=== PATIENT | female | born 1955 | race Caucasian/White ===

== ENCOUNTER → 2016-11-23 | Outpatient (CLI) | payer BC, MEDICAID ==
[2016-11-23 13:45] VITALS: BP 149/73; PULSE 69; RESP 16; TEMP 98.1; BMI 27.4
--- NOTE | 2016-11-23 14:02 | P.HPBAR ---
Bariatric H&P - History & Physicial H&P Date: 11/23/16 History & Physicial: Visit/CC: band adj Patient initial contact: Initial weight: 65.913 kg Initial weight in pounds: 145.00 Height: 5 ft 1 in Initial BMI: 27.4 Last weight: Current weight: 65.913 kg Current weight in pounds: 145.00 Current BMI: 27.4 [place] body weight (based on NIH guidelines): 47.627 kg Excess body weight loss: 0.0% The patient is a 61 year-old F who presents for Bariatric Assessment. The patient presents today for adjustment of her LAP-BAND. She currently feels hungry. She is requesting a fill Review of Systems Constitutional: Reports as per HPI Past Medical History History of Any Multi-Drug Resistant Organisms: None Reported Additional Past Surgical History / Comment(s): neck surgery. Smoking Status: Never smoker Surgical - Exam Vital Signs Temp Pulse Resp BP 98.1 F 69 16 149/73 11/23/16 13:42 11/23/16 13:42 11/23/16 13:42 11/23/16 13:42 - General well developed, no distress - Eyes PERRL - ENT normal pinna - Neck no masses - Respiratory normal expansion - Cardiovascular Rhythm: regular - Abdomen Abdomen: soft, non tender Bariatric Assessment & Plan Plan: The patient is LAP-BAND was adjusted. She had 0.5 mL added to her LAP-BAND. She currently has 3.7 mL in the band. She'll follow-up in one month. Bariatric Checklist Checklist: Plan: Checklist: EGD: 1. Hiatal hernia: 2. H. Pylori: HgbA1c: Vitamin D: Smoking: Never smoker Primary care physician referral: Psychiatry clearance: Cardiology clearance: Sleep study: Diet journal: VTE risk score: VTE risk level: Rehab needs at discharge:
== END | disposition home or self-care (01) ==
LOC: BARWHC3 13:11
PROVIDERS: ATTEND Surgery
DX: Z48.815 Encounter for surgical aftercare following surgery on the digestive system (principal); Z68.27 Body mass index [BMI] 27.0-27.9, adult; Z98.84 Bariatric surgery status
CPT/HCPCS: 99212

== ENCOUNTER → 2016-12-07 | Outpatient (CLI) | payer MEDICAID ==
[2016-12-07 13:53] VITALS: BP 149/80; PULSE 83; RESP 14; TEMP 97.6; BMI 27.9
--- NOTE | 2016-12-07 16:36 | P.HPBAR ---
Bariatric H&P - History & Physicial H&P Date: 12/07/16 History & Physicial: Visit/CC: band fill Patient initial contact: Initial weight: 65.913 kg Initial weight in pounds: 145.31 Height: 5 ft 1 in Initial BMI: 27.4 Last weight: Current weight: 67.132 kg Current weight in pounds: 148.00 Current BMI: 27.9 [place] body weight (based on NIH guidelines): 47.627 kg Excess body weight loss: The patient is a 61 year-old F who presents for Bariatric Assessment. The patient was a safer lap band fill. She states she is hungry. Past Medical History Past Medical History: GERD/Reflux, Hyperlipidemia, Hypertension Additional Past Medical History / Comment(s): overactive bladder History of Any Multi-Drug Resistant Organisms: None Reported Past Surgical History: Bariatric Surgery, Orthopedic Surgery Additional Past Surgical History / Comment(s): neck surgery, lap band 2007, panniculectomy Past Anesthesia/Blood Transfusion Reactions: No Reported Reaction Additional Past Anesthesia/Blood Transfusion Reaction / Comm: one blood transfusion (autolygous) Past Psychological History: No Psychological Hx Reported Smoking Status: Never smoker Past Alcohol Use History: None Reported Past Drug Use History: None Reported - Past Family History Mother Family Medical History: Cancer, Coronary Artery Disease (CAD) Additional Family Medical History / Comment(s): spindle cell cancer, at age 72 Father Family Medical History: Coronary Artery Disease (CAD) Additional Family Medical History / Comment(s): at age 62 Surgical - Exam Vital Signs Temp Pulse Resp BP 97.6 F 83 14 149/80 12/07/16 13:43 12/07/16 13:43 12/07/16 13:43 12/07/16 13:43 - General well developed, no distress - Eyes PERRL - ENT normal pinna - Abdomen Abdomen: soft, non tender Bariatric Assessment & Plan Plan: Patient LAP-BAND was adjusted. She had 1 mL added to her LAP-BAND. She currently has 4.7 mL in her band. She'll follow-up in one month. She was able to water without difficulty. Bariatric Checklist Checklist: Plan: Checklist: EGD: 1. Hiatal hernia: 2. H. Pylori: HgbA1c: Vitamin D: Smoking: Never smoker Primary care physician referral: donal davenport ([place]) Psychiatry clearance: Cardiology clearance: Sleep study: Diet journal: VTE risk score: VTE risk level: Rehab needs at discharge:
== END | disposition home or self-care (01) ==
LOC: BARWHC3 13:03
PROVIDERS: ATTEND Surgery
DX: Z48.815 Encounter for surgical aftercare following surgery on the digestive system (principal); Z98.84 Bariatric surgery status; Z68.27 Body mass index [BMI] 27.0-27.9, adult
CPT/HCPCS: 99212

== ENCOUNTER → 2016-12-21 | Outpatient (CLI) | payer MEDICAID ==
--- NOTE | 2016-12-21 16:29 | P.HPBAR ---
Bariatric H&P - History & Physicial H&P Date: 12/21/16 History & Physicial: Visit/CC: Patient initial contact: Initial weight: 65.913 kg Initial weight in pounds: Height: Initial BMI: Last weight: Current weight: Current weight in pounds: Current BMI: [place] body weight (based on NIH guidelines): Excess body weight loss: The patient is a 61 year-old F who presents for Bariatric Assessment. The patient has complaints of hunger. She wants another fibrillar her LAP-BAND. She states she feels no obstruction. Past Medical History Past Medical History: GERD/Reflux, Hyperlipidemia, Hypertension Additional Past Medical History / Comment(s): overactive bladder History of Any Multi-Drug Resistant Organisms: None Reported Past Surgical History: Bariatric Surgery, Orthopedic Surgery Additional Past Surgical History / Comment(s): neck surgery, lap band 2008, panniculectomy Past Anesthesia/Blood Transfusion Reactions: No Reported Reaction Additional Past Anesthesia/Blood Transfusion Reaction / Comm: one blood transfusion (autolygous) Past Psychological History: No Psychological Hx Reported Smoking Status: Never smoker Past Alcohol Use History: None Reported Past Drug Use History: None Reported - Past Family History Mother Family Medical History: Cancer, Coronary Artery Disease (CAD) Additional Family Medical History / Comment(s): spindle cell cancer, at age 72 Father Family Medical History: Coronary Artery Disease (CAD) Additional Family Medical History / Comment(s): at age 62 Surgical - Exam - General well developed, no distress - Eyes PERRL - ENT normal pinna - Neck no masses - Respiratory normal expansion - Cardiovascular Rhythm: regular - Abdomen Abdomen: soft, non tender Bariatric Assessment & Plan Plan: The patient LAP-BAND was accessed. She has no fluid in her LAP-BAND. 2 mL of flushing to her LAP-BAND there was no return of fluid. I discussed patient that she has a malfunction LAP-BAND port. She will need laparoscopic LAP-BAND port replacement. Patient to be scheduled for laps Placement of LAP-BAND port. Bariatric Checklist Checklist: Plan: Checklist: EGD: 1. Hiatal hernia: 2. H. Pylori: HgbA1c: Vitamin D: Smoking: Never smoker Primary care physician referral: donal davenport ([place]) Psychiatry clearance: Cardiology clearance: Sleep study: Diet journal: VTE risk score: VTE risk level: Rehab needs at discharge:
[2016-12-21 16:33] VITALS: BP 135/78; PULSE 62; RESP 16; TEMP 98.2; BMI 29.2
== END | disposition home or self-care (01) ==
LOC: BARWHC3 13:57
PROVIDERS: ATTEND Surgery
DX: Z48.815 Encounter for surgical aftercare following surgery on the digestive system (principal); Z98.84 Bariatric surgery status; K95.09 Other complications of gastric band procedure; T85.518A Breakdown (mechanical) of other gastrointestinal prosthetic devices, implants and grafts, initial encounter
CPT/HCPCS: 99211

== ENCOUNTER 2017-01-05 09:08 | Day surgery (SDC) | payer MEDICAID ==
[2017-01-01 11:14] VITALS: BMI 28.8
[~2017-01-05 09:08] MED LIST: DEXAMETHASONE SOD PHOSPHATE 10 MG/ML 1 ML VIAL IV ONE; FAMOTIDINE 20 MG/2 ML VIAL IV PRN; LACTATED RINGERS 1,000 ML IV SCH; LIDOCAINE 1% 20 ML VIAL (10MG/ML) FOR IV START INTRADERMA PRN; MIDAZOLAM 2 MG/2 ML VIAL IV PRN; ONDANSETRON 4 MG/2 ML VIAL IVP ONE
[2017-01-05 09:44] VITALS: RESP 18
--- NOTE | 2017-01-05 10:37 | P.GSHP ---
History of Present Illness H&P Date: 01/05/17 Chief Complaint: LAP-BAND port bowel function This is a 61-year-old female who presents today for laparoscopic removal and replacement of her LAP-BAND port. She's had issues with maintaining her fill volumes. Her LAP-BAND port is leaking. - Constitutional Constitutional: Reports as per HPI Past Medical History Past Medical History: GERD/Reflux, Hyperlipidemia, Hypertension, Rheumatoid Arthritis (RA) Additional Past Medical History / Comment(s): OVER ACTIVE BLADDER, NEUROPATHY FEET AND LEGS, BACK PAIN. STATES TAKING AUGMENTIN FOR SINUS INFECTION- INSTRUCTED TO NOTIFY DR PARIKH'S OFFICE. History of Any Multi-Drug Resistant Organisms: None Reported Past Surgical History: Back Surgery, Bariatric Surgery, Orthopedic Surgery Additional Past Surgical History / Comment(s): neck surgery X4, back surgery X 9., , lap band (2007), panniculectomy . Past Anesthesia/Blood Transfusion Reactions: No Reported Reaction, Motion Sickness Additional Past Anesthesia/Blood Transfusion Reaction / Comment(s): one blood transfusion (autolygous) Past Psychological History: No Psychological Hx Reported Smoking Status: Never smoker Past Alcohol Use History: None Reported Past Drug Use History: None Reported - Past Family History Mother Family Medical History: Cancer, Coronary Artery Disease (CAD) Additional Family Medical History / Comment(s): spindle cell cancer, at age 72 Father Family Medical History: Coronary Artery Disease (CAD) Additional Family Medical History / Comment(s): at age 62 Medications and Allergies Home Medications Medication Instructions Recorded Confirmed Type Estradiol [Estrace] 1 mg PO DAILY 08/24/16 01/01/17 History Lovastatin [Mevacor] 20 mg PO HS 08/24/16 01/01/17 History Methocarbamol [Robaxin-750] 750 mg PO QID PRN 08/24/16 01/01/17 History Omeprazole [PriLOSEC] 20 tab PO BID 08/24/16 01/01/17 History Oxybutynin Chloride [Ditropan] 5 mg PO DAILY 08/24/16 01/01/17 History Pregabalin [Lyrica] 75 tab PO TID 08/24/16 01/01/17 History Sucralfate [Carafate] 1 gm PO BID 08/24/16 01/01/17 History amLODIPine [Norvasc] 5 tab PO BID 08/24/16 01/01/17 History fentaNYL 75MCG/HR PATCH [Duragesic 1 patch TOPICAL Q72H 08/24/16 01/01/17 History 75MCG/HR] Acetaminophen Tab [Tylenol Tab] 650 mg PO Q6H PRN 01/01/17 01/01/17 History Amoxicillin/Potassium Clav 1 tab PO Q12HR 01/01/17 01/01/17 History [Augmentin 875-125 Tablet] Certolizumab Pegol [Cimzia] 400 mg SQ DIRECTED 01/01/17 01/01/17 History Doxylamine Succinate [Unisom] 25 mg PO HS PRN 01/01/17 01/01/17 History Fluticasone Nasal [place] [Flonase 2 spr EA NOSTRIL BID 01/01/17 01/01/17 History Nasal [place]] Gabapentin [Neurontin] 300 mg PO TID 01/01/17 01/01/17 History Leflunomide [Arava] 20 mg PO DAILY 01/01/17 01/01/17 History Multivitamin/Iron/Folic Acid 1 each PO DAILY 01/01/17 01/01/17 History [Centrum Complete Multivit Tab] Stool Softner 1 tab PO DAILY PRN 01/01/17 History Vitamin B-12 (Unknown Dose) 1 tab PO DAILY 01/01/17 History Allergies Allergy/AdvReac Type Severity Reaction Status Date / Time adhesive tape Allergy Unknown Tears skin Verified 01/01/17 10:41 hydrocodone [From Vicodin] Allergy Unknown Hallucinati Verified 01/01/17 10:41 ons aspirin Allergy Rash/Hives Verified 01/01/17 10:41 morphine AdvReac Hallucinati Verified 01/01/17 10:41 ons Surgical - Exam Vital Signs Temp Pulse Resp BP Pulse Ox 97.9 F 69 18 169/90 97 01/05/17 09:43 01/05/17 09:43 01/05/17 09:43 01/05/17 09:43 01/05/17 09:43 - General well developed, no distress - Eyes PERRL - ENT normal pinna - Neck no masses - Respiratory normal expansion - Cardiovascular Rhythm: regular - Abdomen Abdomen: soft, non tender Assessment and Plan Plan: LAP-BAND port malfunction. We'll perform laparoscopic replacement and removal of LAP-BAND port
[2017-01-05] MEDS ORDERED: fentaNYL (PF) 50 MCG/ML 2 ML AMP ONE (10:54)
[2017-01-05] MEDS ORDERED: ePHEDrine 50 MG/ML 1 ML AMP ONE (10:54)
[2017-01-05] MEDS ORDERED: GLYCOPYRROLATE 0.2 MG/ML 2 ML VIAL ONE (10:54)
[2017-01-05] MEDS ORDERED: SUCCINYLCHOLINE CHLORIDE 100 MG/5 ML SYR IV ONE (10:54)
[2017-01-05] MEDS ORDERED: PROPOFOL 10 MG/ML 20 ML VIAL IV ONE (10:54)
[2017-01-05] MEDS ORDERED: NEOSTIGMINE 1 MG/ML 10 ML VIAL ONE (10:54)
[2017-01-05] MEDS ORDERED: LIDOCAINE 1% INJ 10MG/ML (20 ML MDV) ONE (10:54)
[2017-01-05] MEDS ORDERED: ROCURONIUM BROMIDE 10 MG/ML 10 ML VIAL IV ONE (10:54)
[2017-01-05] MEDS ORDERED: BUPIVACAIN-EPI 0.25%-1:200,000 30 ML VIAL SQ ONE (11:14)
[2017-01-05] MEDS ORDERED: SODIUM CHLORIDE 0.9% 50 ML with ceFAZolin 2,000 MG IV ONE ×2 (11:16)
--- NOTE | 2017-01-05 11:54 | P.OP ---
Date of Procedure: 01/05/17 Preoperative Diagnosis: LAP-BAND port malfunction Postoperative Diagnosis: LAP-BAND port malfunction Procedure(s) Performed: Laparoscopic removal and replacement LAP-BAND port Anesthesia: TANIKA Surgeon: Ryder Goldberg Estimated Blood Loss (ml): 5 Condition: stable Disposition: PACU Description of Procedure: The patient's placed on the operating table in supine position. She received general anesthesia. Her abdomen was prepped and draped in usual sterile fashion. The skin was anesthetized 1% local Xylocaine at the LAP-BAND port site and then using a blade the skin was incised and then using blunt and sharp dissection and left cautery the LAP-BAND port was dissected free from subcutaneous tissues. The connecting tube was then cut and the LAP-BAND port was examined there appeared to be shaping of the tubing on the muscle fascia. Next a 5 mm trocar was placed into the peritoneal cavity under direct visualization. The abdomen was insufflated and then after adequate insufflation the laparoscope was placed into the. Cavity. Next a 10 mm trocar was placed in the right upper quadrant. And then the connecting tube was brought up through this trocar site. The LAP-BAND port was then connected to the connecting tube after the trocar was removed and then the LAP-BAND port was secured to the fascia using 0 Nurolon suture. The LAP-BAND port was flushed with 2 mL of normal saline. The skin incision sites were closed with 30 Monocryl suture. The skin was closed Dermabond. Patient sent to recovery in stable condition.
[2017-01-05 12:03] VITALS: TEMP 97.2
[2017-01-05] MEDS ORDERED: KETOROLAC 30 MG/ML 1 ML VIAL IVP ONE (12:27)
[2017-01-05] MEDS: HYDROmorphone 1 MG/ML 1 ML SYRINGE IVP PRN ×2 (12:28→12:41)
[2017-01-05 13:38] VITALS: BP 139/80; PULSE 68
== END 2017-01-05 14:01 | disposition home or self-care (01) ==
LOC: OR 09:08
PROVIDERS: ATTEND Surgery
DX: T85.598A Other mechanical complication of other gastrointestinal prosthetic devices, implants and grafts, initial encounter (principal); I10 Essential (primary) hypertension; M06.9 Rheumatoid arthritis, unspecified; K21.9 Gastro-esophageal reflux disease without esophagitis; G62.9 Polyneuropathy, unspecified; N32.81 Overactive bladder; Z79.899 Other long term (current) drug therapy; Z88.6 Allergy status to analgesic agent; Z88.5 Allergy status to narcotic agent; Z91.09 Other allergy status, other than to drugs and biological substances
CPT/HCPCS: 43773; C1751; J2250; J1100; J2710; J2405; J2001; J3010; J1885; J1170; J0690; J0330; J2704

== ENCOUNTER → 2017-01-18 | Outpatient (CLI) | payer MEDICAID ==
[2017-01-18 14:16] VITALS: PULSE 77; TEMP 98.4; BMI 29.0
--- NOTE | 2017-01-18 14:41 | P.HPBAR ---
Bariatric H&P - History & Physicial H&P Date: 01/18/17 History & Physicial: Visit/CC: surgical follow up Patient initial contact: Initial weight: 65.913 kg Initial weight in pounds: 145.31 Height: 5 ft 1 in Initial BMI: 27.4 Last weight: Current weight: 69.808 kg Current weight in pounds: 153.90 Current BMI: 29.0 [place] body weight (based on NIH guidelines): 47.627 kg Excess body weight loss: The patient is a 61 year-old F who presents for Bariatric Assessment. The patient was assessed today for LAP-BAND follow-up. She had a port replaced 2 weeks ago. Past Medical History Past Medical History: GERD/Reflux, Hyperlipidemia, Hypertension, Rheumatoid Arthritis (RA) Additional Past Medical History / Comment(s): OVER ACTIVE BLADDER, NEUROPATHY FEET AND LEGS, BACK PAIN. STATES TAKING AUGMENTIN FOR SINUS INFECTION- INSTRUCTED TO NOTIFY DR PARIKH'S OFFICE. History of Any Multi-Drug Resistant Organisms: None Reported Past Surgical History: Back Surgery, Bariatric Surgery, Orthopedic Surgery Additional Past Surgical History / Comment(s): neck surgery X4, back surgery X 9., , lap band (2007), panniculectomy .replacement of gasric band 01/11 Past Anesthesia/Blood Transfusion Reactions: No Reported Reaction, Motion Sickness Additional Past Anesthesia/Blood Transfusion Reaction / Comm: one blood transfusion (autolygous) Past Psychological History: No Psychological Hx Reported Smoking Status: Never smoker Past Alcohol Use History: None Reported Past Drug Use History: None Reported - Past Family History Mother Family Medical History: Cancer, Coronary Artery Disease (CAD) Additional Family Medical History / Comment(s): spindle cell cancer, at age 72 Father Family Medical History: Coronary Artery Disease (CAD) Additional Family Medical History / Comment(s): at age 62 Surgical - Exam Vital Signs Temp Pulse 98.4 F 77 01/18/17 14:12 01/18/17 14:12 - General well developed, no distress - Eyes PERRL - ENT normal pinna - Neck no masses - Respiratory normal expansion - Cardiovascular Rhythm: regular - Abdomen The new LAP-BAND port is in the right upper quadrant. The incision is healing. There is no evidence of seroma or infection. Abdomen: soft, non tender Bariatric Assessment & Plan Plan: Status post LAP-BAND port removal and replacement. Patient is doing well. She will follow-up in 2 weeks. We will adjust her LAP-BAND at that time. Bariatric Checklist Checklist: Plan: Checklist: EGD: 1. Hiatal hernia: 2. H. Pylori: HgbA1c: Vitamin D: Smoking: Never smoker Primary care physician referral: donal davenport ([place]) Psychiatry clearance: Cardiology clearance: Sleep study: Diet journal: VTE risk score: VTE risk level: Rehab needs at discharge:
== END | disposition home or self-care (01) ==
LOC: BARWHC3 13:31
PROVIDERS: ATTEND Surgery
DX: Z48.815 Encounter for surgical aftercare following surgery on the digestive system (principal); Z98.84 Bariatric surgery status
CPT/HCPCS: 99213

== ENCOUNTER → 2017-08-02 | Outpatient (CLI) | payer MEDICAID ==
[2017-08-02 14:35] VITALS: BP 132/69; PULSE 70; RESP 15; TEMP 97.9; BMI 22.8
--- NOTE | 2017-08-02 16:37 | P.HPBAR ---
Bariatric H&P - History & Physicial H&P Date: 08/02/17 History & Physicial: Visit/CC: band emptying for EGD/Colonoscopy on 08/13/17 Patient initial contact: Initial weight: 65.913 kg Initial weight in pounds: 145.31 Height: 5 ft 1 in Initial BMI: 27.4 Last weight: Current weight: 55.021 kg Current weight in pounds: 121.30 Current BMI: 22.8 [place] body weight (based on NIH guidelines): 47.627 kg Excess body weight loss: 59.5% The patient is a 61 year-old F who presents for Bariatric Assessment. Patient is requested to have her LAP-BAND empty. She is scheduled to have a upper and lower endoscopy at her home [facility]. She denies a significant GERD and dysphagia. Past Medical History Past Medical History: GERD/Reflux, Hyperlipidemia, Hypertension, Rheumatoid Arthritis (RA) Additional Past Medical History / Comment(s): OVER ACTIVE BLADDER, NEUROPATHY FEET AND LEGS, BACK PAIN. STATES TAKING AUGMENTIN FOR SINUS INFECTION- INSTRUCTED TO NOTIFY DR PARIKH'S OFFICE. History of Any Multi-Drug Resistant Organisms: None Reported Past Surgical History: Back Surgery, Bariatric Surgery, Orthopedic Surgery Additional Past Surgical History / Comment(s): neck surgery X4, back surgery X 9., , lap band (2007), panniculectomy .replacement of gasric band 01/05/17 Past Anesthesia/Blood Transfusion Reactions: No Reported Reaction, Motion Sickness Additional Past Anesthesia/Blood Transfusion Reaction / Comm: one blood transfusion (autolygous) Past Psychological History: No Psychological Hx Reported Smoking Status: Never smoker Past Alcohol Use History: None Reported Past Drug Use History: None Reported - Past Family History Mother Family Medical History: Cancer, Coronary Artery Disease (CAD) Additional Family Medical History / Comment(s): spindle cell cancer, at age 72 Father Family Medical History: Coronary Artery Disease (CAD) Additional Family Medical History / Comment(s): at age 62 Surgical - Exam Vital Signs Temp Pulse Resp BP 97.9 F 70 15 132/69 08/02/17 14:02 08/02/17 14:02 08/02/17 14:02 08/02/17 14:02 - General well developed, no distress - Eyes PERRL - ENT normal pinna - Neck no masses - Respiratory normal expansion - Cardiovascular Rhythm: regular - Abdomen Abdomen: soft, non tender Bariatric Assessment & Plan Plan: The patient LAP-BAND was empty. She had 6 mL removed from her band. She will follow-up in 2 weeks. Bariatric Checklist Checklist: Plan: Checklist: EGD: 1. Hiatal hernia: 2. H. Pylori: HgbA1c: Vitamin D: Smoking: Never smoker Primary care physician referral: donal davenport ([place]) Psychiatry clearance: Cardiology clearance: Sleep study: Diet journal: VTE risk score: VTE risk level: Rehab needs at discharge:
== END | disposition home or self-care (01) ==
LOC: BARWHC3 13:44
PROVIDERS: ATTEND Surgery
DX: Z48.815 Encounter for surgical aftercare following surgery on the digestive system (principal); Z98.84 Bariatric surgery status
CPT/HCPCS: 99212

== ENCOUNTER → 2017-09-13 | Outpatient (CLI) | payer MEDICAID ==
[2017-09-13 14:14] VITALS: BP 147/84; PULSE 72; RESP 16; TEMP 98.2; BMI 25.8
--- NOTE | 2017-09-13 16:25 | P.HPBAR ---
Bariatric H&P - History & Physicial H&P Date: 09/13/17 History & Physicial: Visit/CC: band adj Patient initial contact: Initial weight: 65.913 kg Initial weight in pounds: 145.31 Height: 5 ft 1 in Initial BMI: 27.4 Last weight: Current weight: 61.944 kg Current weight in pounds: 136.00 Current BMI: 25.8 [place] body weight (based on NIH guidelines): 47.627 kg Excess body weight loss: 23.1% The patient is a 61 year-old F who presents for Bariatric Assessment. The patient presents today for LAP-BAND follow-up. She currently is hungry. She is requesting a fill of her LAP-BAND. Her LAP-BAND recently emptied due to her recent foot surgery. Past Medical History Past Medical History: GERD/Reflux, Hyperlipidemia, Hypertension, Rheumatoid Arthritis (RA) Additional Past Medical History / Comment(s): OVER ACTIVE BLADDER, NEUROPATHY FEET AND LEGS, BACK PAIN. STATES TAKING AUGMENTIN FOR SINUS INFECTION- INSTRUCTED TO NOTIFY DR PARIKH'S OFFICE. History of Any Multi-Drug Resistant Organisms: None Reported Past Surgical History: Back Surgery, Bariatric Surgery, Orthopedic Surgery Additional Past Surgical History / Comment(s): neck surgery X4, back surgery X 9., , lap band (2007), panniculectomy .replacement of gasric band 01/05/17 Past Anesthesia/Blood Transfusion Reactions: No Reported Reaction, Motion Sickness Additional Past Anesthesia/Blood Transfusion Reaction / Comm: one blood transfusion (autolygous) Past Psychological History: No Psychological Hx Reported Smoking Status: Never smoker Past Alcohol Use History: None Reported Past Drug Use History: None Reported - Past Family History Mother Family Medical History: Cancer, Coronary Artery Disease (CAD) Additional Family Medical History / Comment(s): spindle cell cancer, at age 72 Father Family Medical History: Coronary Artery Disease (CAD) Additional Family Medical History / Comment(s): at age 62 Surgical - Exam Vital Signs Temp Pulse Resp BP 98.2 F 72 16 147/84 09/13/17 14:12 09/13/17 14:12 09/13/17 14:12 09/13/17 14:12 - General well developed, no distress - Eyes PERRL - ENT normal pinna, normal nares - Neck no masses - Respiratory normal expansion - Cardiovascular Rhythm: regular - Abdomen Abdomen: soft, non tender Bariatric Assessment & Plan Plan: Patient's lap band was adjusted. She had 5 mL added to her band. We'll follow up in 1 month. Bariatric Checklist Checklist: Plan: Checklist: EGD: 1. Hiatal hernia: 2. H. Pylori: HgbA1c: Vitamin D: Smoking: Never smoker Primary care physician referral: donal davenport ([place]) Psychiatry clearance: Cardiology clearance: Sleep study: Diet journal: VTE risk score: VTE risk level: Rehab needs at discharge:
== END ==
LOC: BARWHC3 13:56
PROVIDERS: ATTEND Surgery
DX: Z48.815 Encounter for surgical aftercare following surgery on the digestive system (principal); Z98.84 Bariatric surgery status
CPT/HCPCS: 99212

== ENCOUNTER → 2018-01-10 | Outpatient (CLI) | payer MEDICAID, MEDICARE ==
[2018-01-10 14:35] VITALS: BMI 26.1
--- NOTE | 2018-01-10 16:57 | P.HPBAR ---
Bariatric H&P - History & Physicial H&P Date: 01/10/18 History & Physicial: Visit/CC: band adj Patient initial contact: Initial weight: 65.913 kg Initial weight in pounds: 145.31 Height: 5 ft 1 in Initial BMI: 27.4 Last weight: Current weight: 62.681 kg Current weight in pounds: 138.19 Current BMI: 26.1 [place] body weight (based on NIH guidelines): 47.627 kg Excess body weight loss: 17.6% The patient is a 62 year-old F who presents for Bariatric Assessment. Patient presents today for lab band follow. She's had some minimal GERD. Patient is undergoing back surgery. She is requesting a fill. Past Medical History Past Medical History: GERD/Reflux, Hyperlipidemia, Hypertension, Rheumatoid Arthritis (RA) Additional Past Medical History / Comment(s): OVER ACTIVE BLADDER, NEUROPATHY FEET AND LEGS, BACK PAIN. STATES TAKING AUGMENTIN FOR SINUS INFECTION- INSTRUCTED TO NOTIFY DR PARIKH'S OFFICE. History of Any Multi-Drug Resistant Organisms: None Reported Past Surgical History: Back Surgery, Bariatric Surgery, Orthopedic Surgery Additional Past Surgical History / Comment(s): neck surgery X4, back surgery X 9., , lap band (2007), panniculectomy .replacement of gasric band 01/05/17 Past Anesthesia/Blood Transfusion Reactions: No Reported Reaction, Motion Sickness Additional Past Anesthesia/Blood Transfusion Reaction / Comm: one blood transfusion (autolygous) Past Psychological History: No Psychological Hx Reported Smoking Status: Never smoker Past Alcohol Use History: None Reported Past Drug Use History: None Reported - Past Family History Mother Family Medical History: Cancer, Coronary Artery Disease (CAD) Additional Family Medical History / Comment(s): spindle cell cancer, at age 72 Father Family Medical History: Coronary Artery Disease (CAD) Additional Family Medical History / Comment(s): at age 62 Surgical - Exam - General well developed, no distress - Eyes PERRL - ENT normal pinna - Neck no masses - Respiratory normal expansion - Cardiovascular Rhythm: regular - Abdomen Abdomen: soft, non tender Bariatric Assessment & Plan Plan: I discussed the patient. I do not think she to fill today. She has some mild GERD sutures. Patient follow-up after back surgery. Bariatric Checklist Checklist: Plan: Checklist: EGD: 1. Hiatal hernia: 2. H. Pylori: HgbA1c: Vitamin D: Smoking: Never smoker Primary care physician referral: donal davenport ([place]) Psychiatry clearance: Cardiology clearance: Sleep study: Diet journal: VTE risk score: VTE risk level: Rehab needs at discharge:
== END | disposition home or self-care (01) ==
LOC: BARWHC3 13:53
PROVIDERS: ATTEND Surgery
DX: Z48.815 Encounter for surgical aftercare following surgery on the digestive system (principal); K21.9 Gastro-esophageal reflux disease without esophagitis; Z98.84 Bariatric surgery status
CPT/HCPCS: 99211

== ENCOUNTER → 2018-03-21 | Outpatient (CLI) | payer MEDICARE ==
[2018-03-21 15:31] VITALS: BP 158/79; PULSE 75; TEMP 97.9; BMI 26.0
--- NOTE | 2018-03-21 15:39 | P.HPBAR ---
Bariatric H&P - History & Physicial H&P Date: 03/21/18 History & Physicial: Visit/CC: lap band fill Patient initial contact: Initial weight: 65.913 kg Initial weight in pounds: 145.31 Height: 5 ft 1 in Initial BMI: 27.4 Last weight: Current weight: 62.596 kg Current weight in pounds: 138.00 Current BMI: 26.0 [place] body weight (based on NIH guidelines): 47.627 kg Excess body weight loss: 18.1% The patient is a 62 year-old F who presents for Bariatric Assessment. She presents today for her LAP-BAND adjustment. She is requesting a fill. She currently is hungry. Past Medical History Past Medical History: GERD/Reflux, Hyperlipidemia, Hypertension, Rheumatoid Arthritis (RA) Additional Past Medical History / Comment(s): OVER ACTIVE BLADDER, NEUROPATHY FEET AND LEGS, BACK PAIN. STATES TAKING AUGMENTIN FOR SINUS INFECTION- INSTRUCTED TO NOTIFY DR PARIKH'S OFFICE. History of Any Multi-Drug Resistant Organisms: None Reported Past Surgical History: Back Surgery, Bariatric Surgery, Orthopedic Surgery Additional Past Surgical History / Comment(s): neck surgery X4, back surgery X 9., , lap band (2007), panniculectomy .replacement of gasric band 01/05/17 Past Anesthesia/Blood Transfusion Reactions: No Reported Reaction, Motion Sickness Additional Past Anesthesia/Blood Transfusion Reaction / Comm: one blood transfusion (autolygous) Smoking Status: Never smoker - Past Family History Mother Family Medical History: Cancer, Coronary Artery Disease (CAD) Additional Family Medical History / Comment(s): spindle cell cancer, at age 72 Father Family Medical History: Coronary Artery Disease (CAD) Additional Family Medical History / Comment(s): at age 62 Surgical - Exam Vital Signs Temp Pulse BP 97.9 F 75 158/79 03/21/18 15:28 03/21/18 15:28 03/21/18 15:28 - General well developed, no distress - Eyes PERRL - ENT normal pinna - Neck no masses - Respiratory normal expansion - Cardiovascular Rhythm: regular - Abdomen Abdomen: soft, non tender Bariatric Assessment & Plan Plan: The patient LAP-BAND was adjusted. She'll 0.5 mL added to her band. She was able drink water without difficulty. She will follow-up in 4 weeks. Bariatric Checklist Checklist: Plan: Checklist: EGD: 1. Hiatal hernia: 2. H. Pylori: HgbA1c: Vitamin D: Smoking: Never smoker Primary care physician referral: donal davenport ([place]) Psychiatry clearance: Cardiology clearance: Sleep study: Diet journal: VTE risk score: VTE risk level: Rehab needs at discharge:
== END | disposition home or self-care (01) ==
LOC: BARWHC3 13:41
PROVIDERS: ATTEND Surgery
DX: Z48.815 Encounter for surgical aftercare following surgery on the digestive system (principal); Z98.84 Bariatric surgery status
CPT/HCPCS: 99212

== ENCOUNTER → 2018-05-23 | Outpatient (CLI) | payer MEDICARE ==
[2018-05-23 13:49] VITALS: BP 177/84; PULSE 75; RESP 16; TEMP 99; BMI 26.3
--- NOTE | 2018-05-23 15:22 | P.HPBAR ---
Bariatric H&P - History & Physicial H&P Date: 05/23/18 History & Physicial: Visit/CC: band adj Patient initial contact: Initial weight: 65.913 kg Initial weight in pounds: 145.31 Height: 5 ft 1 in Initial BMI: 27.4 Last weight: Current weight: 63.191 kg Current weight in pounds: 139.31 Current BMI: 26.3 [place] body weight (based on NIH guidelines): 47.627 kg Excess body weight loss: 14.8% The patient is a 62 year-old F who presents for Bariatric Assessment. The patient presents today for lab band follow. She is requesting a fill of her band. She currently feels hungry. Past Medical History Past Medical History: GERD/Reflux, Hyperlipidemia, Hypertension, Rheumatoid Arthritis (RA) Additional Past Medical History / Comment(s): OVER ACTIVE BLADDER, NEUROPATHY FEET AND LEGS, BACK PAIN. STATES TAKING AUGMENTIN FOR SINUS INFECTION- INSTRUCTED TO NOTIFY DR PARIKH'S OFFICE. History of Any Multi-Drug Resistant Organisms: None Reported Past Surgical History: Back Surgery, Bariatric Surgery, Orthopedic Surgery Additional Past Surgical History / Comment(s): neck surgery X4, back surgery X 9., , lap band (2007), panniculectomy .replacement of gasric band 01/05/17 Past Anesthesia/Blood Transfusion Reactions: No Reported Reaction, Motion Sickness Additional Past Anesthesia/Blood Transfusion Reaction / Comm: one blood transfusion (autolygous) Past Psychological History: No Psychological Hx Reported Smoking Status: Never smoker Past Alcohol Use History: None Reported Past Drug Use History: None Reported - Past Family History Mother Family Medical History: Cancer, Coronary Artery Disease (CAD) Additional Family Medical History / Comment(s): spindle cell cancer, at age 72 Father Family Medical History: Coronary Artery Disease (CAD) Additional Family Medical History / Comment(s): at age 62 Surgical - Exam Vital Signs Temp Pulse Resp BP 99 F 75 16 177/84 05/23/18 13:36 05/23/18 13:36 05/23/18 13:36 05/23/18 13:36 - General well developed, no distress - Eyes PERRL - Abdomen Abdomen: soft, non tender Bariatric Assessment & Plan Plan: The patient's lap band was adjusted. She'll 0.5 mL added to her band. She currently has 6 mL in the band. She'll follow-up in 4 weeks. Bariatric Checklist Checklist: Plan: Checklist: EGD: 1. Hiatal hernia: 2. H. Pylori: HgbA1c: Vitamin D: Smoking: Never smoker Primary care physician referral: donal davenport ([place]) Psychiatry clearance: Cardiology clearance: Sleep study: Diet journal: VTE risk score: VTE risk level: Rehab needs at discharge:
== END | disposition home or self-care (01) ==
LOC: BARWHC3 13:10
PROVIDERS: ATTEND Surgery
DX: Z48.815 Encounter for surgical aftercare following surgery on the digestive system (principal); Z98.84 Bariatric surgery status
CPT/HCPCS: 99212

== ENCOUNTER → 2018-12-05 | Outpatient (CLI) | payer MEDICARE ==
[2018-12-05 13:25] VITALS: BP 119/76; PULSE 70; RESP 16; TEMP 97.8; BMI 23.6
--- NOTE | 2018-12-23 11:37 | P.HPBAR ---
Bariatric H&P - History & Physicial H&P Date: 12/05/18 History & Physicial: Visit/CC: BAND ADJ Patient initial contact: Initial weight: 65.913 kg Initial weight in pounds: 145.31 Height: 5 ft 1 in Initial BMI: 27.4 Last weight: Current weight: 56.699 kg Current weight in pounds: 125.00 Current BMI: 23.6 [place] body weight (based on NIH guidelines): 47.627 kg Excess body weight loss: 50.3% The patient is a 63 year-old F who presents for Bariatric Assessment. The patient presents today for lap band adjustment. She has had trouble with nausea and vomiting. She is requesting an adjustment of her band. Past Medical History Past Medical History: GERD/Reflux, Hyperlipidemia, Hypertension, Rheumatoid Arthritis (RA) Additional Past Medical History / Comment(s): OVER ACTIVE BLADDER, NEUROPATHY FEET AND LEGS, BACK PAIN. STATES TAKING AUGMENTIN FOR SINUS INFECTION- INSTRUCTED TO NOTIFY DR PARIKH'S OFFICE. History of Any Multi-Drug Resistant Organisms: None Reported Past Surgical History: Back Surgery, Bariatric Surgery, Orthopedic Surgery Additional Past Surgical History / Comment(s): neck surgery X4, back surgery X 9., , lap band (2007), panniculectomy .replacement of gasric band 01/05/17 Past Anesthesia/Blood Transfusion Reactions: No Reported Reaction, Motion Sickness Additional Past Anesthesia/Blood Transfusion Reaction / Comm: one blood transfusion (autolygous) Past Psychological History: No Psychological Hx Reported Smoking Status: Never smoker Past Alcohol Use History: None Reported Past Drug Use History: None Reported - Past Family History Mother Family Medical History: Cancer, Coronary Artery Disease (CAD) Additional Family Medical History / Comment(s): spindle cell cancer, at age 72 Father Family Medical History: Coronary Artery Disease (CAD) Additional Family Medical History / Comment(s): at age 62 Surgical - Exam Vital Signs Temp Pulse Resp BP 97.8 F 70 16 119/76 12/05/18 13:22 12/05/18 13:22 12/05/18 13:22 12/05/18 13:22 - General well developed, well nourished, no distress - Eyes PERRL - ENT normal pinna - Neck no masses - Respiratory normal expansion - Abdomen Abdomen: soft, non tender Bariatric Assessment & Plan Plan: Patient's lap band was adjusted. She had 2 mL remove her band. She currently has 4 mL left in the band. Bariatric Checklist Checklist: Plan: Checklist: EGD: 1. Hiatal hernia: 2. H. Pylori: HgbA1c: Vitamin D: Smoking: Never smoker Primary care physician referral: donal davenport ([place]) Psychiatry clearance: Cardiology clearance: Sleep study: Diet journal: VTE risk score: VTE risk level: Rehab needs at discharge:
== END ==
LOC: BARWHC3 13:02
PROVIDERS: ATTEND Surgery
DX: Z48.815 Encounter for surgical aftercare following surgery on the digestive system (principal); Z98.84 Bariatric surgery status
CPT/HCPCS: 99212

== ENCOUNTER → 2019-01-02 | Outpatient (CLI) | payer MEDICARE ==
[2019-01-02 16:18] VITALS: BP 127/72; PULSE 71; TEMP 97.8; BMI 26.6
--- NOTE | 2019-01-06 11:22 | P.HPBAR ---
Bariatric H&P - History & Physicial H&P Date: 01/02/19 History & Physicial: Visit/CC: lap band follow up Patient initial contact: Initial weight: 65.913 kg Initial weight in pounds: 145.31 Height: 5 ft 1 in Initial BMI: 27.4 Last weight: Current weight: 63.957 kg Current weight in pounds: 141.00 Current BMI: 26.6 [place] body weight (based on NIH guidelines): 47.627 kg Excess body weight loss: 10.6% The patient is a 63 year-old F who presents for Bariatric Assessment. Patient presents today for her LAP-BAND follow-up. She is requesting a adjustment of her band. She is currently hungry. Past Medical History Past Medical History: GERD/Reflux, Hyperlipidemia, Hypertension, Rheumatoid Arthritis (RA) Additional Past Medical History / Comment(s): OVER ACTIVE BLADDER, NEUROPATHY FEET AND LEGS, BACK PAIN. STATES TAKING AUGMENTIN FOR SINUS INFECTION- INSTRUCTED TO NOTIFY DR PARIKH'S OFFICE. History of Any Multi-Drug Resistant Organisms: None Reported Past Surgical History: Back Surgery, Bariatric Surgery, Orthopedic Surgery Additional Past Surgical History / Comment(s): neck surgery X4, back surgery X 9., , lap band (2007), panniculectomy .replacement of gasric band 01/05/17 Past Anesthesia/Blood Transfusion Reactions: No Reported Reaction, Motion Sickness Additional Past Anesthesia/Blood Transfusion Reaction / Comm: one blood transfusion (autolygous) Past Psychological History: No Psychological Hx Reported Smoking Status: Never smoker Past Alcohol Use History: None Reported Past Drug Use History: None Reported - Past Family History Mother Family Medical History: Cancer, Coronary Artery Disease (CAD) Additional Family Medical History / Comment(s): spindle cell cancer, at age 72 Father Family Medical History: Coronary Artery Disease (CAD) Additional Family Medical History / Comment(s): at age 62 Surgical - Exam Vital Signs Temp Pulse BP 97.8 F 71 127/72 01/02/19 16:14 01/02/19 16:14 01/02/19 16:14 - General well developed, no distress - Eyes PERRL - Abdomen Abdomen: soft, non tender Bariatric Assessment & Plan Plan: Patient LAP-BAND was just. She had 1 mL added to her band. She currently has 5 mL in the band. She will follow-up in 4 weeks. Bariatric Checklist Checklist: Plan: Checklist: EGD: 1. Hiatal hernia: 2. H. Pylori: HgbA1c: Vitamin D: Smoking: Never smoker Primary care physician referral: donal davenport ([place]) Psychiatry clearance: Cardiology clearance: Sleep study: Diet journal: VTE risk score: VTE risk level: Rehab needs at discharge:
== END ==
LOC: BARWHC3 15:34
PROVIDERS: ATTEND Surgery
DX: Z48.815 Encounter for surgical aftercare following surgery on the digestive system (principal); Z98.84 Bariatric surgery status
CPT/HCPCS: 99212

== ENCOUNTER → 2019-01-30 | Outpatient (CLI) | payer MEDICARE ==
[2019-01-30 15:49] VITALS: BP 124/83; PULSE 61; RESP 16; TEMP 98; BMI 28.1
--- NOTE | 2019-01-30 16:37 | P.HPBAR ---
Bariatric H&P - History & Physicial H&P Date: 01/30/19 History & Physicial: Visit/CC: band adj Patient initial contact: Initial weight: 65.913 kg Initial weight in pounds: 145.31 Height: 5 ft 1 in Initial BMI: 27.4 Last weight: Current weight: 67.585 kg Current weight in pounds: 149.00 Current BMI: 28.1 [place] body weight (based on NIH guidelines): 47.627 kg Excess body weight loss: The patient is a 63 year-old F who presents for Bariatric Assessment. Patient presents today for her LAP-BAND adjustment. She states she feels hungry. She feels no restriction her band. Past Medical History Past Medical History: GERD/Reflux, Hyperlipidemia, Hypertension, Rheumatoid Arthritis (RA) Additional Past Medical History / Comment(s): OVER ACTIVE BLADDER, NEUROPATHY FEET AND LEGS, BACK PAIN. STATES TAKING AUGMENTIN FOR SINUS INFECTION- INSTRUCTED TO NOTIFY DR PARIKH'S OFFICE. History of Any Multi-Drug Resistant Organisms: None Reported Past Surgical History: Back Surgery, Bariatric Surgery, Orthopedic Surgery Additional Past Surgical History / Comment(s): neck surgery X4, back surgery X 9., , lap band (2007), panniculectomy .replacement of gasric band 01/05/17 Past Anesthesia/Blood Transfusion Reactions: No Reported Reaction, Motion Sickness Additional Past Anesthesia/Blood Transfusion Reaction / Comm: one blood transfusion (autolygous) Smoking Status: Never smoker - Past Family History Mother Family Medical History: Cancer, Coronary Artery Disease (CAD) Additional Family Medical History / Comment(s): spindle cell cancer, at age 72 Father Family Medical History: Coronary Artery Disease (CAD) Additional Family Medical History / Comment(s): at age 62 Surgical - Exam Vital Signs Temp Pulse Resp BP 98 F 61 16 124/83 01/30/19 15:46 01/30/19 15:46 01/30/19 15:46 01/30/19 15:46 - General well developed, well nourished - Abdomen Abdomen: soft, non tender Bariatric Assessment & Plan Plan: Patient LAP-BAND was accessed. She had 4.2 mL in the band. She was supposed to have 5 mL in the band. Patient had 1 mL added to her band she currently has 5 mL in the band. She will follow-up in 4 weeks. Bariatric Checklist Checklist: Plan: Checklist: EGD: 1. Hiatal hernia: 2. H. Pylori: HgbA1c: Vitamin D: Smoking: Never smoker Primary care physician referral: donal davenport ([place]) Psychiatry clearance: Cardiology clearance: Sleep study: Diet journal: VTE risk score: VTE risk level: Rehab needs at discharge:
== END | disposition home or self-care (01) ==
LOC: BARWHC3 14:57
PROVIDERS: ATTEND Surgery
DX: Z46.51 Encounter for fitting and adjustment of gastric lap band (principal); E78.5 Hyperlipidemia, unspecified; I10 Essential (primary) hypertension; Z98.84 Bariatric surgery status
CPT/HCPCS: 99212

== ENCOUNTER → 2019-02-01 | Outpatient (CLI) | payer MEDICARE ==
[2019-02-01 11:59] VITALS: BP 146/97; PULSE 105; RESP 16; TEMP 97.7; BMI 25.9
--- NOTE | 2019-02-01 12:53 | P.HPBAR ---
Bariatric H&P - History & Physicial H&P Date: 02/01/19 History & Physicial: Visit/CC: Band Adj/Too tight Patient initial contact: Initial weight: 65.913 kg Initial weight in pounds: 145.31 Height: 5 ft 1 in Initial BMI: 27.4 Last weight: Current weight: 62.142 kg Current weight in pounds: 137.00 Current BMI: 25.9 [place] body weight (based on NIH guidelines): 47.627 kg Excess body weight loss: 20.6% The patient is a 63 year-old F who presents for Bariatric Assessment. Patient requesting her band. Adjusted. She has completed dysphagia. Past Medical History Past Medical History: GERD/Reflux, Hyperlipidemia, Hypertension, Rheumatoid Art hritis (RA) Additional Past Medical History / Comment(s): OVER ACTIVE BLADDER, NEUROPATHY FEET AND LEGS, BACK PAIN. STATES TAKING AUGMENTIN FOR SINUS INFECTION- INSTRUCTED TO NOTIFY DR PARIKH'S OFFICE. History of Any Multi-Drug Resistant Organisms: None Reported Past Surgical History: Back Surgery, Bariatric Surgery, Orthopedic Surgery Additional Past Surgical History / Comment(s): neck surgery X4, back surgery X 9., , lap band (2007), panniculectomy .replacement of gasric band 01/05/17 Past Anesthesia/Blood Transfusion Reactions: No Reported Reaction, Motion Sickness Additional Past Anesthesia/Blood Transfusion Reaction / Comm: one blood transfusion (autolygous) Past Psychological History: No Psychological Hx Reported Smoking Status: Never smoker Past Alcohol Use History: None Reported Past Drug Use History: None Reported - Past Family History Mother Family Medical History: Cancer, Coronary Artery Disease (CAD) Additional Family Medical History / Comment(s): spindle cell cancer, at age 72 Father Family Medical History: Coronary Artery Disease (CAD) Additional Family Medical History / Comment(s): at age 62 Surgical - Exam Vital Signs Temp Pulse Resp BP 97.7 F 105 H 16 146/97 02/01/19 11:55 02/01/19 11:55 02/01/19 11:55 02/01/19 11:55 - General well developed, well nourished, no distress - Abdomen Abdomen: soft, non tender Bariatric Assessment & Plan Plan: Patient's lap band was adjusted. She had 1.5 mL remove her band. She currently has 4 mL in the band. She'll follow-up in 2 weeks. She was able to water without difficulty. Bariatric Checklist Checklist: Plan: Checklist: EGD: 1. Hiatal hernia: 2. H. Pylori: HgbA1c: Vitamin D: Smoking: Never smoker Primary care physician referral: donal davenport ([place]) Psychiatry clearance: Cardiology clearance: Sleep study: Diet journal: VTE risk score: VTE risk level: Rehab needs at discharge:
== END | disposition home or self-care (01) ==
LOC: BARWHC3 10:09
PROVIDERS: ATTEND Surgery
DX: Z46.51 Encounter for fitting and adjustment of gastric lap band (principal); K21.9 Gastro-esophageal reflux disease without esophagitis; I10 Essential (primary) hypertension; M06.9 Rheumatoid arthritis, unspecified; Z98.84 Bariatric surgery status; Z98.890 Other specified postprocedural states
CPT/HCPCS: 99212

== ENCOUNTER → 2019-04-10 | Outpatient (CLI) | payer MEDICARE ==
[2019-04-10 13:59] VITALS: BP 138/80; PULSE 78; RESP 16; TEMP 98.2; BMI 27.3
--- NOTE | 2019-04-14 13:31 | P.HPBAR ---
Bariatric H&P - History & Physicial H&P Date: 04/10/19 History & Physicial: Visit/CC: Band Adj Patient initial contact: Initial weight: 65.913 kg Initial weight in pounds: 145.31 Height: 5 ft 1 in Initial BMI: 27.4 Last weight: Current weight: 65.771 kg Current weight in pounds: 145.00 Current BMI: 27.3 [place] body weight (based on NIH guidelines): 47.627 kg Excess body weight loss: 0.7% The patient is a 63 year-old F who presents for Bariatric Assessment. Patient is requesting a fill of her LAP-BAND she currently feels hungry. Past Medical History Past Medical History: GERD/Reflux, Hyperlipidemia, Hypertension, Rheumatoid Arthritis (RA) Additional Past Medical History / Comment(s): OVER ACTIVE BLADDER, NEUROPATHY FEET AND LEGS, BACK PAIN. STATES TAKING AUGMENTIN FOR SINUS INFECTION- INSTRUCTED TO NOTIFY DR PARIKH'S OFFICE. History of Any Multi-Drug Resistant Organisms: None Reported Past Surgical History: Back Surgery, Bariatric Surgery, Orthopedic Surgery Additional Past Surgical History / Comment(s): neck surgery X4, back surgery X 9., , lap band (2007), panniculectomy .replacement of gasric band 01/05/17 Past Anesthesia/Blood Transfusion Reactions: No Reported Reaction, Motion Sickness Additional Past Anesthesia/Blood Transfusion Reaction / Comm: one blood transfus ion (autolygous) Past Psychological History: No Psychological Hx Reported Smoking Status: Never smoker Past Alcohol Use History: None Reported Past Drug Use History: None Reported - Past Family History Mother Family Medical History: Cancer, Coronary Artery Disease (CAD) Additional Family Medical History / Comment(s): spindle cell cancer, at age 72 Father Family Medical History: Coronary Artery Disease (CAD) Additional Family Medical History / Comment(s): at age 62 Surgical - Exam Vital Signs Temp Pulse Resp BP 98.2 F 78 16 138/80 04/10/19 13:56 04/10/19 13:56 04/10/19 13:56 04/10/19 13:56 - General well developed, well nourished - Abdomen Abdomen: soft, non tender Bariatric Assessment & Plan Plan: Patient LAP-BAND was adjusted. She had 0.5 mL added to her band. She's ill drink water without difficulty. She'll follow-up in 4 weeks. Bariatric Checklist Checklist: Plan: Checklist: EGD: 1. Hiatal hernia: 2. H. Pylori: HgbA1c: Vitamin D: Smoking: Never smoker Primary care physician referral: donal davenport ([place]) Psychiatry clearance: Cardiology clearance: Sleep study: Diet journal: VTE risk score: VTE risk level: Rehab needs at discharge:
== END | disposition home or self-care (01) ==
LOC: BARWHC3 13:16
PROVIDERS: ATTEND Surgery
DX: Z46.51 Encounter for fitting and adjustment of gastric lap band (principal); Z98.84 Bariatric surgery status
CPT/HCPCS: 99212

== ENCOUNTER → 2019-05-01 | Outpatient (CLI) | payer MEDICARE ==
[2019-05-01 13:32] VITALS: BP 143/78; PULSE 103; RESP 16; TEMP 98.1; BMI 25.1
--- NOTE | 2019-05-01 15:02 | P.HPBAR ---
Bariatric H&P - History & Physicial H&P Date: 05/01/19 History & Physicial: Visit/CC: Band Adj Patient initial contact: Initial weight: 65.913 kg Initial weight in pounds: 145.31 Height: 5 ft 1 in Initial BMI: 27.4 Last weight: Current weight: 60.328 kg Current weight in pounds: 133.00 Current BMI: 25.1 [place] body weight (based on NIH guidelines): 47.627 kg Excess body weight loss: 30.5% The patient is a 63 year-old F who presents for Bariatric Assessment. Patient presents today for LAP-BAND adjustment. She's had some issues dysphagia and dehydration. Past Medical History Past Medical History: GERD/Reflux, Hyperlipidemia, Hypertension, Rheumatoid Arthritis (RA) Additional Past Medical History / Comment(s): OVER ACTIVE BLADDER, NEUROPATHY FEET AND LEGS, BACK PAIN. STATES TAKING AUGMENTIN FOR SINUS INFECTION- INSTRUCTED TO NOTIFY DR PARIKH'S OFFICE. History of Any Multi-Drug Resistant Organisms: None Reported Past Surgical History: Back Surgery, Bariatric Surgery, Orthopedic Surgery Additional Past Surgical History / Comment(s): neck surgery X4, back surgery X 9., , lap band (2007), panniculectomy .replacement of gasric band 01/05/17 Past Anesthesia/Blood Transfusion Reactions: No Reported Reaction, Motion Sickness Additional Past Anesthesia/Blood Transfusion Reaction / Comm: one blood transfusion (autolygous) Smoking Status: Never smoker - Past Family History Mother Family Medical History: Cancer, Coronary Artery Disease (CAD) Additional Family Medical History / Comment(s): spindle cell cancer, at age 72 Father Family Medical History: Coronary Artery Disease (CAD) Additional Family Medical History / Comment(s): at age 62 Surgical - Exam Vital Signs Temp Pulse Resp BP 98.1 F 103 H 16 143/78 05/01/19 13:30 05/01/19 13:30 05/01/19 13:30 05/01/19 13:30 - General well developed, well nourished, no distress - Eyes PERRL - Abdomen Abdomen: soft, non tender Bariatric Assessment & Plan Plan: Patient's lap band had fluid removed. 0.5 mL removed from the band. She currently is 4.5 mL in the band. Bariatric Checklist Checklist: Plan: Checklist: EGD: 1. Hiatal hernia: 2. H. Pylori: HgbA1c: Vitamin D: Smoking: Never smoker Primary care physician referral: donal davenport ([place]) Psychiatry clearance: Cardiology clearance: Sleep study: Diet journal: VTE risk score: VTE risk level: Rehab needs at discharge:
== END ==
LOC: BARWHC3 13:10
PROVIDERS: ATTEND Surgery
DX: Z48.815 Encounter for surgical aftercare following surgery on the digestive system (principal); R13.10 Dysphagia, unspecified; E86.0 Dehydration; Z98.84 Bariatric surgery status
CPT/HCPCS: 99212

== ENCOUNTER → 2019-07-10 | Outpatient (CLI) | payer MEDICARE ==
--- NOTE | 2019-07-10 13:46 | P.HPBAR ---
Bariatric H&P - History & Physicial H&P Date: 07/10/19 History & Physicial: Visit/CC: Patient initial contact: Initial weight: 65.913 kg Initial weight in pounds: Height: Initial BMI: Last weight: Current weight: Current weight in pounds: Current BMI: [place] body weight (based on NIH guidelines): Excess body weight loss: The patient is a 63 year-old F who presents for Bariatric Assessment. Patient is hungry. She's requesting a fill. She is gained approximately 23 pounds since her last visit. Past Medical History Past Medical History: GERD/Reflux, Hyperlipidemia, Hypertension, Rheumatoid Arthritis (RA) Additional Past Medical History / Comment(s): OVER ACTIVE BLADDER, NEUROPATHY FEET AND LEGS, BACK PAIN. STATES TAKING AUGMENTIN FOR SINUS INFECTION- INSTRUCTED TO NOTIFY DR PARIKH'S OFFICE. History of Any Multi-Drug Resistant Organisms: None Reported Past Surgical History: Back Surgery, Bariatric Surgery, Orthopedic Surgery Additional Past Surgical History / Comment(s): neck surgery X4, back surgery X 9., , lap band (2007), panniculectomy .replacement of gasric band 01/05/17 Past Anesthesia/Blood Transfusion Reactions: No Reported Reaction, Motion Sickness Additional Past Anesthesia/Blood Transfusion Reaction / Comm: one blood transfusion (autolygous) Past Psychological History: No Psychological Hx Reported Smoking Status: Never smoker Past Alcohol Use History: None Reported Past Drug Use History: None Reported - Past Family History Mother Family Medical History: Cancer, Coronary Artery Disease (CAD) Additional Family Medical History / Comment(s): spindle cell cancer, at age 72 Father Family Medical History: Coronary Artery Disease (CAD) Additional Family Medical History / Comment(s): at age 62 Surgical - Exam - General well developed, well nourished, no distress - Eyes PERRL - ENT normal pinna - Neck no masses - Respiratory normal expansion - Cardiovascular Rhythm: regular - Abdomen Abdomen: soft, non tender Bariatric Assessment & Plan Plan: The patient's lap band was adjusted. She had 0.2 mL added to her band. She denies 4.7 mL in the band. She was ill drink water without difficulty. She'll follow-up in 4 weeks. Bariatric Checklist Checklist: Plan: Checklist: EGD: 1. Hiatal hernia: 2. H. Pylori: HgbA1c: Vitamin D: Smoking: Never smoker Primary care physician referral: donal davenport ([place]) Psychiatry clearance: Cardiology clearance: Sleep study: Diet journal: VTE risk score: VTE risk level: Rehab needs at discharge:
[2019-07-10 14:05] VITALS: BP 182/75; PULSE 101; TEMP 98.2; BMI 29.5
== END | disposition home or self-care (01) ==
LOC: BARWHC3 13:25
PROVIDERS: ATTEND Surgery
DX: Z46.51 Encounter for fitting and adjustment of gastric lap band (principal); Z98.84 Bariatric surgery status; Z48.817 Encounter for surgical aftercare following surgery on the skin and subcutaneous tissue
CPT/HCPCS: 99212

== ENCOUNTER → 2019-08-14 | Outpatient (CLI) | payer MEDICARE ==
--- NOTE | 2019-08-14 13:44 | FL ---
EXAMINATION TYPE: [place] barium swallow DATE OF EXAM: 08/14/2019 CLINICAL HISTORY: Increasing dysphagia with gastroesophageal reflux. Vomiting. TECHNIQUE: Esophagram is performed utilizing thin barium only. 1 minute and 14 seconds of fluoroscopy was utilized with 25 images saved. COMPARISON: None. FINDINGS: The patient tolerated oral contrast. There is delay of flow of contrast along the course of the esoph maria [place] with only trace contrast extending through the gastric band despite prolonged imaging time. Ther e is severe resultant intraesophageal reflux and tertiary contractions. No evidence of leak. IMPRESSION: High-grade esophageal narrowing through the biopsy and with only trace amount of contrast extending into the stomach after prolonged imaging time.
== END | disposition home or self-care (01) ==
LOC: RADFLMAIN 12:53
PROVIDERS: ATTEND Surgery
DX: R13.10 Dysphagia, unspecified (principal); Z88.5 Allergy status to narcotic agent; Z91.048 Other nonmedicinal substance allergy status
CPT/HCPCS: 74220

== ENCOUNTER → 2019-08-14 | Outpatient (CLI) | payer MEDICARE ==
[2019-08-14 15:42] VITALS: BP 120/68; PULSE 89; TEMP 98.1; BMI 29.0
--- NOTE | 2019-08-14 18:04 | P.HPBAR ---
Bariatric H&P - History & Physicial H&P Date: 08/14/19 History & Physicial: Visit/CC: Patient initial contact: Initial weight: 65.913 kg Initial weight in pounds: 145.31 Height: 5 ft 1 in Initial BMI: 27.4 Last weight: Current weight: 69.853 kg Current weight in pounds: 154.00 Current BMI: 29.0 [place] body weight (based on NIH guidelines): 47.627 kg Excess body weight loss: The patient is a 63 year-old F who presents for Bariatric Assessment. Patient is going to dysphagia. Her esophagram shows significant obstruction at her LAP- BAND site. Past Medical History Past Medical History: GERD/Reflux, Hyperlipidemia, Hypertension, Rheumatoid Arthritis (RA) Additional Past Medical History / Comment(s): OVER ACTIVE BLADDER, NEUROPATHY FEET AND LEGS, BACK PAIN. STATES TAKING AUGMENTIN FOR SINUS INFECTION- INSTRUC MARISOL TO NOTIFY DR PARIKH'S OFFICE. History of Any Multi-Drug Resistant Organisms: None Reported Past Surgical History: Back Surgery, Bariatric Surgery, Orthopedic Surgery Additional Past Surgical History / Comment(s): neck surgery X4, back surgery X 9., , lap band (2007), panniculectomy .replacement of gasric band 01/05/17. Pain stimulator (TENS) implanted May 2019 to thoracic spine Past Anesthesia/Blood Transfusion Reactions: No Reported Reaction, Motion Sickness Additional Past Anesthesia/Blood Transfusion Reaction / Comm: one blood transfusion (autolygous) Past Psychological History: No Psychological Hx Reported Smoking Status: Never smoker Past Alcohol Use History: None Reported Past Drug Use History: None Reported - Past Family History Mother Family Medical History: Cancer, Coronary Artery Disease (CAD) Additional Family Medical History / Comment(s): spindle cell cancer, at age 72 Father Family Medical History: Coronary Artery Disease (CAD) Additional Family Medical History / Comment(s): at age 62 Surgical - Exam Vital Signs Temp Pulse BP 98.1 F 89 120/68 08/14/19 15:39 08/14/19 15:39 08/14/19 15:39 - General well developed, well nourished, no distress - Eyes PERRL - ENT normal pinna - Neck no masses - Respiratory normal expansion - Cardiovascular Rhythm: regular - Abdomen Abdomen: soft, non tender Bariatric Assessment & Plan Plan: Patient's lap band was adjusted. She hasn't 2 mL remove her band. She currently is 4 mL in the band. She's ill drink water without difficulty. S he'll follow-up in 4 weeks Bariatric Checklist Checklist: Plan: Checklist: EGD: 1. Hiatal hernia: 2. H. Pylori: HgbA1c: Vitamin D: Smoking: Never smoker Primary care physician referral: [facility] clearance: Cardiology clearance: Sleep study: Diet journal: VTE risk score: VTE risk level: Rehab needs at discharge:
== END | disposition home or self-care (01) ==
LOC: BARWHC3 13:28
PROVIDERS: ATTEND Surgery
DX: Z46.51 Encounter for fitting and adjustment of gastric lap band (principal); Z98.84 Bariatric surgery status
CPT/HCPCS: 99212

== ENCOUNTER → 2019-10-02 | Outpatient (CLI) | payer MEDICARE ==
[2019-10-02 13:33] VITALS: BP 155/90; PULSE 101; TEMP 98.4; BMI 32.3
--- NOTE | 2019-10-02 15:46 | P.HPBAR ---
Bariatric H&P - History & Physicial H&P Date: 10/02/19 History & Physicial: Visit/CC: lap band follow up Patient initial contact: Initial weight: 65.913 kg Initial weight in pounds: 145.31 Height: 5 ft 1 in Initial BMI: 27.4 Last weight: Current weight: 77.564 kg Current weight in pounds: 171.00 Current BMI: 32.3 [place] body weight (based on NIH guidelines): 47.627 kg Excess body weight loss: The patient is a 63 year-old F who presents for Bariatric Assessment. Patient presents today for her LAP-BAND adjustment. She currently feels hungry. Past Medical History Past Medical History: GERD/Reflux, Hyperlipidemia, Hypertension, Rheumatoid Arthritis (RA) Additional Past Medical History / Comment(s): OVER ACTIVE BLADDER, NEUROPATHY FEET AND LEGS, BACK PAIN. STATES TAKING AUGMENTIN FOR SINUS INFECTION- INSTRUC MARISOL TO NOTIFY DR PARIKH'S OFFICE. History of Any Multi-Drug Resistant Organisms: None Reported Past Surgical History: Back Surgery, Bariatric Surgery, Orthopedic Surgery Additional Past Surgical History / Comment(s): neck surgery X4, back surgery X 9., , lap band (2007), panniculectomy .replacement of gasric band 01/05/17. Pain stimulator (TENS) implanted May 2019 to thoracic spine Past Anesthesia/Blood Transfusion Reactions: No Reported Reaction, Motion Sickness Additional Past Anesthesia/Blood Transfusion Reaction / Comm: one blood transfusion (autolygous) Past Psychological History: No Psychological Hx Reported Smoking Status: Never smoker Past Alcohol Use History: None Reported Past Drug Use History: None Reported - Past Family History Mother Family Medical History: Cancer, Coronary Artery Disease (CAD) Additional Family Medical History / Comment(s): spindle cell cancer, at age 72 Father Family Medical History: Coronary Artery Disease (CAD) Additional Family Medical History / Comment(s): at age 62 Surgical - Exam Vital Signs Temp Pulse BP 98.4 F 101 H 155/90 10/02/19 13:15 10/02/19 13:15 10/02/19 13:15 - General well developed, well nourished, no distress - Eyes PERRL - Abdomen Abdomen: soft, non tender Bariatric Assessment & Plan Plan: The patient's lap band was adjusted. She had 0.5 mL added to her band. She'll follow-up in 4 weeks. Bariatric Checklist Checklist: Plan: Checklist: EGD: 1. Hiatal hernia: 2. H. Pylori: HgbA1c: Vitamin D: Smoking: Never smoker Primary care physician referral: [facility] clearance: Cardiology clearance: Sleep study: Diet journal: VTE risk score: VTE risk level: Rehab needs at discharge:
== END | disposition home or self-care (01) ==
LOC: BARWHC3 12:40
PROVIDERS: ATTEND Surgery
DX: Z46.51 Encounter for fitting and adjustment of gastric lap band (principal); Z98.84 Bariatric surgery status
CPT/HCPCS: 99212

== ENCOUNTER → 2019-10-30 | Outpatient (CLI) | payer MEDICARE ==
[2019-10-30 13:41] VITALS: BP 124/70; PULSE 86; TEMP 98.2; BMI 34.0
--- NOTE | 2019-10-30 13:54 | P.HPBAR ---
Bariatric H&P - History & Physicial H&P Date: 10/30/19 History & Physicial: Visit/CC: lap band follow up Patient initial contact: Initial weight: 65.913 kg Initial weight in pounds: 145.31 Height: 5 ft 1 in Initial BMI: 27.4 Last weight: Current weight: 81.647 kg Current weight in pounds: 180.00 Current BMI: 34.0 [place] body weight (based on NIH guidelines): 47.627 kg Excess body weight loss: The patient is a 64 year-old F who presents for Bariatric Assessment. Patient presents today for her LAP-BAND follow-up. Patient's had a weight gain. She is unable to have her band adjusted due to issues with chronic dysphagia once her band is adjusted. The patient has had multiple problems with dysphagia in the past. Patient is requesting to have her band converted to a sleeve gastrectomy. Past Medical History Past Medical History: GERD/Reflux, Hyperlipidemia, Hypertension, Rheumatoid Arthritis (RA) Additional Past Medical History / Comment(s): OVER ACTIVE BLADDER, NEUROPATHY FEET AND LEGS, BACK PAIN. STATES TAKING AUGMENTIN FOR SINUS INFECTION- INSTRUCTED TO NOTIFY DR PARIKH'S OFFICE. History of Any Multi-Drug Resistant Organisms: None Reported Past Surgical History: Back Surgery, Bariatric Surgery, Orthopedic Surgery Additional Past Surgical History / Comment(s): neck surgery X4, back surgery X 9., , lap band (2007), panniculectomy .replacement of gasric band 01/05/17. Pain stimulator (TENS) implanted May 2019 to thoracic spine Past Anesthesia/Blood Transfusion Reactions: No Reported Reaction, Motion Sickness Additional Past Anesthesia/Blood Transfusion Reaction / Comm: one blood transfusion (autolygous) Smoking Status: Never smoker - Past Family History Mother Family Medical History: Cancer, Coronary Artery Disease (CAD) Additional Family Medical History / Comment(s): spindle cell cancer, at age 72 Father Family Medical History: Coronary Artery Disease (CAD) Additional Family Medical History / Comment(s): at age 62 Surgical - Exam Vital Signs Temp Pulse BP 98.2 F 86 124/70 10/30/19 13:38 10/30/19 13:38 10/30/19 13:38 - General well developed, well nourished, no distress - Eyes PERRL - ENT normal pinna - Neck no masses - Respiratory normal expansion - Cardiovascular Rhythm: regular - Abdomen Abdomen: soft, non tender Bariatric Assessment & Plan Plan: dysphagia related to LAP-BAND. Patient will be attended to be authorized for conversion sleeve gastrectomy. Her band was not further adjusted today due to chronic dysphagia. Bariatric Checklist Checklist: Plan: Checklist: EGD: 1. Hiatal hernia: 2. H. Pylori: HgbA1c: Vitamin D: Smoking: Never smoker Primary care physician referral: [facility] clearance: Cardiology clearance: Sleep study: Diet journal: VTE risk score: VTE risk level: Rehab needs at discharge:
== END | disposition home or self-care (01) ==
LOC: BARWHC3 12:58
PROVIDERS: ATTEND Surgery
DX: Z46.51 Encounter for fitting and adjustment of gastric lap band (principal); K95.09 Other complications of gastric band procedure; R13.19 Other dysphagia; Z98.84 Bariatric surgery status; Z98.890 Other specified postprocedural states
CPT/HCPCS: 99211

== ENCOUNTER → 2020-12-02 | Outpatient (CLI) | payer MEDICARE ==
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
== END | disposition home or self-care (01) ==
CPT/HCPCS: 99212

== ENCOUNTER 2021-02-13 08:47 | Day surgery (SDC) | payer MEDICARE ==
[2021-02-11 14:38] VITALS: BMI 33.8
[~2021-02-13 08:47] MED LIST changes: -DEXAMETHASONE SOD PHOSPHATE 10 MG/ML 1 ML VIAL IV ONE; -FAMOTIDINE 20 MG/2 ML VIAL IV PRN; -LACTATED RINGERS 1,000 ML IV SCH; +LIDOCAINE 1% (10MG/ML) FOR IV START INTRADERMA PRN; -LIDOCAINE 1% 20 ML VIAL (10MG/ML) FOR IV START INTRADERMA PRN; -MIDAZOLAM 2 MG/2 ML VIAL IV PRN; -ONDANSETRON 4 MG/2 ML VIAL IVP ONE
[2021-02-13 09:19] VITALS: RESP 16; TEMP 97.1
[2021-02-13 09:31] LABS: Glucose,Whole Blood 93 mg/dL (75-99)
[2021-02-13] MEDS: LACTATED RINGERS 1,000 ML IV SCH ×2 (09:31→10:07)
[2021-02-13] MEDS ORDERED: PROPOFOL 10 MG/ML 20 ML VIAL IV ONE (10:08)
--- NOTE | 2021-02-13 10:16 | P.GSHP ---
History of Present Illness H&P Date: 02/13/21 Chief Complaint: GERD Is a 65-year-old female who presents today for EGD. She's had issues with GERD. Past Medical History Past Medical History: Eye Disorder, GERD/Reflux, Hyperlipidemia, Hypertension, Rheumatoid Arthritis (RA) Additional Past Medical History / Comment(s): OVER ACTIVE BLADDER, NEUROPATHY FEET AND LEGS, BACK AND NECK PAIN. Cataracts and Glaucoma. History of Any Multi-Drug Resistant Organisms: None Reported Past Surgical History: Back Surgery, Bariatric Surgery, Orthopedic Surgery Additional Past Surgical History / Comment(s): Neck surgery X4, back surgery X10, Lap Band (2007), Panniculectomy, replacement of Gasric Band 01/05/17, Pain stimulator (TENS) implanted May 2019 to thoracic spine. Past Anesthesia/Blood Transfusion Reactions: No Reported Reaction, Motion Sickness Additional Past Anesthesia/Blood Transfusion Reaction / Comment(s): One blood transfusion (autolygous). Past Psychological History: Anxiety Smoking Status: Never smoker Past Alcohol Use History: None Reported Past Drug Use History: None Reported - Past Family History Mother Family Medical History: Cancer, Coronary Artery Disease (CAD) Additional Family Medical History / Comment(s): Spindle cell cancer, at age 72. Father Family Medical History: Coronary Artery Disease (CAD) Additional Family Medical History / Comment(s): at age 62. Medications and Allergies Home Medications Medication Instructions Recorded Confirmed Type Lovastatin [Mevacor] 20 mg PO HS 08/24/16 02/13/21 History Omeprazole [PriLOSEC] 20 mg PO BID 08/24/16 02/13/21 History Oxybutynin Chloride [Ditropan] 5 mg PO DAILY 08/24/16 02/13/21 History Sucralfate [Carafate] 1 gm PO BID 08/24/16 02/13/21 History amLODIPine [Norvasc] 20 mg PO BID 08/24/16 02/13/21 History Leflunomide [Arava] 20 mg PO DAILY 01/01/17 02/13/21 History Citalopram Hydrobromide [CeleXA] 20 mg PO DAILY 08/02/17 02/13/21 History Docusate [Colace] 100 mg PO DAILY 08/02/17 02/13/21 History predniSONE 5 mg PO Q48H 08/02/17 02/13/21 History Gabapentin [Neurontin] 300 mg PO TID 01/04/19 02/13/21 History Acetaminophen-Codeine 300-30mg 1 tab PO Q12H 02/11/21 02/13/21 History [Tylenol w/codeine #3] Ibuprofen [Motrin] 800 mg PO Q6H PRN 02/11/21 02/13/21 History Vit C/E/Zn/Coppr/Lutein/Zeaxan 1 each PO DAILY 02/11/21 02/13/21 History [Preservision Areds 2 Softgel] Allergies Allergy/AdvReac Type Severity Reaction Status Date / Time adhesive tape Allergy Unknown Tears skin Verified 02/13/21 09:33 hydrocodone [From Vicodin] Allergy Unknown Hallucinati Verified 02/13/21 09:33 ons morphine AdvReac Hallucinati Verified 02/13/21 09:33 ons Surgical - Exam Vital Signs Temp Pulse Resp BP Pulse Ox 97.1 F L 88 16 183/93 96 02/13/21 09:14 02/13/21 09:14 02/13/21 09:14 02/13/21 09:14 02/13/21 09:14 - General well developed, well nourished, no distress - Eyes PERRL - ENT normal pinna - Neck no masses - Respiratory normal expansion Assessment and Plan Assessment: GERD we'll perform EGD
--- NOTE | 2021-02-13 10:26 | P.OP ---
Date of Procedure: 02/13/21 Preoperative Diagnosis: GERD Postoperative Diagnosis: Antral gastritis Esophagitis Procedure(s) Performed: EGD Anesthesia: MAC Surgeon: Ryder Goldberg Pathology: other (Antrum, esophagus) Condition: stable Disposition: PACU Description of Procedure: The patient's placed on the endoscopy table in the lateral position. C received IV sedation. The gastro-/oropharynx passed in the esophagus and stomach. Scope was then placed through the pylorus. First and second portion of duodenum appeared normal. Scope back the antrum and this appeared mildly inflamed. A biopsies performed. Scope was unretroflexed and remainder stomach appeared normal. The patient a previous placed [place] device and this was without evidence of inflammation or erosion. The distal esophagus was inflamed. A biopsies performed. The proximal esophagus appeared normal. Scope was withdrawn for patient.
[2021-02-13] MEDS ORDERED: ACETAMINOPHEN TAB 325 MG TAB PO STA (10:38)
[2021-02-13] MEDS ORDERED: ACETAMINOPHEN TAB 325 MG TAB PO ONE (10:41)
[2021-02-13 10:44] VITALS: BP 140/95; PULSE 83
== END 2021-02-13 11:06 | disposition home or self-care (01) ==
LOC: ORWHC2ENDO 08:47
PROVIDERS: ATTEND Surgery
DX: K21.00 Gastro-esophageal reflux disease with esophagitis, without bleeding (principal); K29.60 Other gastritis without bleeding; E78.5 Hyperlipidemia, unspecified; I10 Essential (primary) hypertension; M06.9 Rheumatoid arthritis, unspecified; H40.9 Unspecified glaucoma; N32.81 Overactive bladder; G62.9 Polyneuropathy, unspecified; Z98.890 Other specified postprocedural states; F41.9 Anxiety disorder, unspecified; Z79.899 Other long term (current) drug therapy; Z88.5 Allergy status to narcotic agent
CPT/HCPCS: 88305; 43239; J2704

== ENCOUNTER → 2021-03-10 | Outpatient (CLI) | payer MEDICARE ==
[2021-03-10 11:27] VITALS: BMI 34.1
[2021-03-10 13:21] VITALS: BP 149/83; PULSE 87; RESP 16; TEMP 98.3
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
== END | disposition home or self-care (01) ==
LOC: BARWHC3 08:39
PROVIDERS: ATTEND Surgery
DX: E66.01 Morbid (severe) obesity due to excess calories (principal); E78.5 Hyperlipidemia, unspecified; I10 Essential (primary) hypertension; M06.9 Rheumatoid arthritis, unspecified; Z68.34 Body mass index [BMI] 34.0-34.9, adult; Z98.84 Bariatric surgery status
CPT/HCPCS: 97804; G0463; 99211

== ENCOUNTER → 2022-11-20 | Outpatient (CLI) | payer MEDICARE, OTHER ==
--- NOTE | 2022-11-23 06:46 | PE ---
EXAMINATION TYPE: PET CT fusion skull to thigh DATE OF EXAM: 11/20/2022 COMPARISON: NONE at this institution. HISTORY: Lung nodule. TECHNIQUE: Following the intravenous administration of mCi of F-18 FDG, whole body images are perfor med from the skull base to the midthigh. Images are reviewed on the computer in the coronal, axial, and sagittal planes. Reconstructed rotating images are created on independent workstation and review ed on the computer. A localization and attenuation correction CT is performed in conjunction with t he PET scan. Blood glucose level equals. SCAN: Initial Scan FINDINGS: SKULL BASE AND NECK: No areas of abnormal increased radiotracer uptake. CHEST, MEDIASTINUM, AND HILAR REGION: Somewhat low lung volumes are present. There is mild linear sca rring and/or atelectasis in the left lower lobe. There is 1.6 x 1.3 cm left lower lobe pulmonary nodu le axial image 86 that is ametabolic. There is minimally hypermetabolic subcarinal lymph node measuring 2.3 x 1.2 cm axial image 75, max MOLINA V is 2.72. There is hypermetabolic 8mm AP window lymph node axial image 67, max SUV is 3.86. ABDOMEN AND PELVIS: Normal excretion. No adrenal masses. No areas of abnormal hypermetabolic uptake. OSSEOUS STRUCTURES: No areas of abnormal hypermetabolic uptake. OTHER CT: Surgical change to the cervical spine and thoracolumbar spine causing streak artifact is se en. Ascending aorta measures up to 3.9 cm in diameter. Coronary artery calcification is present. There is left band device that appears satisfactory in position just below the diaphragm. There is so me cortical thinning and volume loss greater in the left kidney. There is some scar tissue overlying the anterior abdominal wall in the pelvis. Uterus is surgically absent or markedly atrophic. IMPRESSION: Persistent 1.6 x 1.3 cm left lower lobe nodule is ametabolic. Nonspecific thoracic lymph nodes are noted. Favor reactive inflammatory or infectious etiology. No additional areas of abnormal hypermetabolic uptake. Consider follow-up CT and/or PET/CT in 3-6 months time to document stability o f findings.
== END | disposition home or self-care (01) ==
LOC: RADPETMAIN 07:52
PROVIDERS: ATTEND Internal Medicine
DX: R91.1 Solitary pulmonary nodule (principal)
CPT/HCPCS: 78815; A9552

== ENCOUNTER → 2022-12-07 | Outpatient (CLI) | payer MEDICARE ==
[2022-12-07 14:22] VITALS: BP 157/90; PULSE 83; TEMP 98.3; BMI 36.1
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
== END ==
LOC: BARWHC3 13:58
PROVIDERS: ATTEND Surgery
DX: E66.01 Morbid (severe) obesity due to excess calories (principal); K21.9 Gastro-esophageal reflux disease without esophagitis; Z98.84 Bariatric surgery status; Z46.51 Encounter for fitting and adjustment of gastric lap band; E78.5 Hyperlipidemia, unspecified; I10 Essential (primary) hypertension; M06.9 Rheumatoid arthritis, unspecified; Z91.048 Other nonmedicinal substance allergy status; Z88.5 Allergy status to narcotic agent; Z68.36 Body mass index [BMI] 36.0-36.9, adult
CPT/HCPCS: 99211

== ENCOUNTER 2023-02-08 07:40 | Inpatient (IN) | payer MEDICARE, OTHER ==
[~2023-02-08 07:40] MED LIST changes: +ENOXAPARIN 40 MG/0.4 ML SYRINGE SQ PRN; -LIDOCAINE 1% (10MG/ML) FOR IV START INTRADERMA PRN
[2023-02-08] MEDS ORDERED: LACTATED RINGERS 1,000 ML IV ONE ×3 (09:45→14:59)
[2023-02-08] MEDS ORDERED: ONDANSETRON 4 MG/2 ML VIAL IVP ONE (10:30)
[2023-02-08 10:36] LABS: Glucose,Whole Blood 122 mg/dL (70-110)
[2023-02-08] MEDS ORDERED: ONDANSETRON 4 MG/2 ML VIAL ONE (10:41)
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
[2023-02-08] MEDS ORDERED: fentaNYL (PF) 50 MCG/ML 2 ML AMP ONE (11:58)
[2023-02-08] MEDS ORDERED: HYDROmorphone (PF) 1 MG/ML ONE (11:58)
[2023-02-08] MEDS ORDERED: ROCURONIUM 10 MG/ML (5 ML VIAL) IV ONE (11:58)
[2023-02-08] MEDS ORDERED: PHENYLEPHRINE-0.9% NACL SYG 1,000 MCG/10 ML SYRINGE ONE (11:58)
[2023-02-08] MEDS ORDERED: LIDOCAINE 2% INJ 20 MG/ML (2 ML VIAL) ONE (11:58)
[2023-02-08] MEDS ORDERED: MIDAZOLAM 2 MG/2 ML VIAL ONE (11:58)
[2023-02-08] MEDS ORDERED: KETOROLAC 15 MG/ML 1 ML VIAL ONE (11:58)
[2023-02-08] MEDS ORDERED: SUCCINYLCHOLINE CHLORIDE 200 MG/10 ML VIAL IV ONE (11:58)
[2023-02-08] MEDS ORDERED: PROPOFOL 10 MG/ML 20 ML VIAL IV ONE (11:58)
[2023-02-08] MEDS ORDERED: BUPIVACAINE (PF) 0.25% 30 ML VIAL SQ ONE (12:24)
[2023-02-08] MEDS ORDERED: droPERidol 5 MG/2 ML VIAL IVP ONE (13:50)
[2023-02-08] MEDS ORDERED: NALOXONE 0.4 MG/ML 1 ML VIAL IV PRN (13:53)
[2023-02-08] MEDS ORDERED: HYDROcodone/APAP 15 ML SOLUTION PO PRN (13:53)
[2023-02-08] MEDS ORDERED: ACETAMINOPHEN ORAL SUSP (PEDS) 3,840 MG/120 ML BOTTLE PO PRN (13:53)
[2023-02-08] MEDS: HYDROmorphone 0.5 MG/0.5 ML SYRINGE IVP ONE ×2 (14:14→14:19)
[2023-02-08] MEDS: hydrALAZINE HCL 20 MG/ML 1 ML VIAL IV ONE ×2 (14:26→14:37)
[2023-02-08] MEDS: ALBUTEROL NEBULIZED 2.5 MG/3 ML INHALATION SCH ×2 (14:55→21:03)
[2023-02-08] MEDS ORDERED: LABETALOL 5 MG/ML VIAL MDV IV ONE (15:16)
[2023-02-08] MEDS: 0.9% NACL WITH KCL 20 MEQ/L 1,000 ML IV SCH ×2 (17:07→20:28)
[2023-02-08] MEDS: KETOROLAC 15 MG/ML 1 ML VIAL IVP SCH ×2 (17:34→23:33)
[2023-02-08] MEDS ORDERED: HYDROcodone/APAP 7.5-325MG 1 EACH TAB PO PRN (17:50)
[2023-02-08] MEDS: Acetaminophen-Codeine 300-30mg TAB PO PRN (18:49)
[2023-02-08] MEDS: ONDANSETRON 4 MG/2 ML VIAL IVP PRN (20:28)
[2023-02-08] MEDS: ENOXAPARIN 40 MG/0.4 ML SYRINGE SQ SCH (23:33)
[2023-02-09] MEDS: KETOROLAC 15 MG/ML 1 ML VIAL IVP SCH ×2 (05:31→13:06)
[2023-02-09] MEDS: ONDANSETRON 4 MG/2 ML VIAL IVP PRN (05:34)
[2023-02-09] MEDS ORDERED: 1: THIAMINE 100 MG, FOLIC ACID 1 MG, POTASSIUM CHLORIDE 20 MEQ in SODIUM CHLORIDE 0.9% 1 IV SCH ×5 (08:00)
[2023-02-09] MEDS: ALBUTEROL NEBULIZED 2.5 MG/3 ML INHALATION SCH ×3 (08:13→15:35)
[2023-02-09] MEDS ORDERED: PANTOPRAZOLE 40 MG/10 ML VIAL IV SCH (09:00)
[2023-02-09 09:49] LABS: HCT 38.1 % (37.2-46.3); HGB 11.8 g/dL (12.0-15.0); MCH 27.3 pg (27.0-32.0); Mean Platelet Volume 9.6 fL (9.5-12.2); NRBC Per 100 WBC 0 /100 WBCS (0.0-0.0); Platelet Count 342 X 10*3/uL (140-440); RBC 4.33 X 10*6/uL (4.10-5.20); RDW 14.9 % (11.5-14.5); WBC 10.99 X 10*3/uL (4.50-10.00)
[2023-02-09] MEDS ORDERED: ARTIFICIAL TEARS-HYPROMELLOSE DROPS 15 ML BTL BOTH EYES PRN (10:07)
[2023-02-09] MEDS ORDERED: LEFLUNOMIDE 20 MG TAB PO SCH (10:15)
[2023-02-09] MEDS ORDERED: ATORVASTATIN 40 MG TAB PO SCH (10:15)
[2023-02-09] MEDS ORDERED: PRAMIPEXOLE 0.25 MG TAB PO SCH (10:15)
[2023-02-09] MEDS ORDERED: OXYBUTYNIN XL 5 MG TAB.ER.24 PO SCH (10:15)
[2023-02-09] MEDS ORDERED: SERTRALINE 50 MG TAB PO SCH (10:15)
[2023-02-09] MEDS ORDERED: carvediloL 12.5 MG TAB PO SCH (10:15)
[2023-02-09] MEDS ORDERED: GABAPENTIN 300 MG CAP PO SCH (10:15)
[2023-02-09 11:42] LABS: Magnesium 1.6 mg/dL (1.5-2.4)
[2023-02-09 12:13] VITALS: BMI 33.5
[2023-02-09] MEDS: Acetaminophen-Codeine 300-30mg TAB PO PRN (12:27)
[2023-02-09] MEDS: ENOXAPARIN 40 MG/0.4 ML SYRINGE SQ SCH (13:06)
[2023-02-09 13:09] LABS: African American GFR (CKD) 97.2 (60.0-200.0); Anion Gap 15.4 mmol/L (10.00-18.00); Blood Urea Nitrogen 10.1 mg/dL (9.0-27.0); Calcium 8.8 mg/dL (8.7-10.3); Carbon Dioxide 21.1 mmol/L (20.0-27.5); Non-African American GFR(CKD) 83.9 (60.0-200.0); Phosphorus 2.9 mg/dL (2.4-5.1); Potassium 4.2 mmol/L (3.5-5.5)
[2023-02-09 13:20] LABS: Basophils # (A) 0.05 X 10*3/uL (0.00-0.10); Basophils % (A) 0.5 %; Eosinophils # (A) 0.36 X 10*3/uL (0.04-0.35); Eosinophils % (A) 3.3 %; Immature Grans, Automated 0.3 %; Lymphocytes # (A) 1.58 X 10*3/uL (0.90-5.00); Lymphocytes % (A) 14.4 %; Monocytes % (A) 15.5 %; Neutrophils # (A) 7.27 X 10*3/uL (1.80-7.70)
[2023-02-09 13:21] LABS: Crenated RBC 2+; Elliptocytes 2+
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
[2023-02-09 14:44] VITALS: BP 134/78; PULSE 79; RESP 19; TEMP 98.3
--- NOTE | 2023-02-09 14:48 | P.DS ---
Providers Date of admission: 02/08/23 09:30 Expected date of discharge: 02/09/23 Attending physician: Ryder Goldberg Consults: 02/08/23 13:53 Consult Physician Routine Consulting Provider: Sabas Pino Consult Reason/Comments: med manage Do you want consulting provider notified?: Yes [facility]: Discharge diagnosis 1. Morbid obesity 2. Dysphagia 3. GERD Hospital course This is a 67-year-old female with known history of morbid obesity with a lap band. She has been dealing with chronic issues of dysphagia and GERD related to her lap band. She is status post removal of the lap band system with conversion to sleep gastrectomy. Patient tolerated surgery well. She is tolerating diet. She is having flatus. She has been up and ambulating. Her pain is controlled. She is afebrile. She is stable for discharge. Please refer to chart for any further details. Physician Assistant Foreman note has been reviewed by physician. Signing provider agrees with the documented findings, assessment, and plan of care. Patient Condition at Discharge: Stable Plan - Discharge Summary Discharge Rx Participant: Yes New Discharge Prescriptions: New Ondansetron Odt [Zofran Odt] 4 mg PO Q8HR PRN #9 tab PRN Reason: Nausea bisacodyL [Dulcolax] 5 mg PO DAILY PRN #10 tab PRN Reason: Constipation Simethicone 40 mg/0.6 ml Drops [Mylicon Drops] 40 mg PO PCHS PRN #30 ml PRN Reason: Gas Continue Omeprazole [PriLOSEC] 20 mg PO BID Gabapentin [Neurontin] 600 mg PO TID Pramipexole [Mirapex] 0.25 mg PO BID Vit C/E/Zn/Coppr/Lutein/Zeaxan [Preservision Areds 2 Softgel] 1 each PO DAILY [place]-3 Fatty Acids [[place]-3] 3,200 mg PO BID Cyclobenzaprine [Flexeril] 10 mg PO TID Atorvastatin [Lipitor] 40 mg PO DAILY predniSONE 5 mg PO Q2D Artificial Tears-Hypromellose [Artificial Tear Drops] 1 drops BOTH EYES 5XD PRN PRN Reason: dry eyes Folic Acid 1 mg PO DAILY Acetaminophen with Codeine [Tylenol #4 Tablet] 1 tab PO 5XD PRN PRN Reason: Pain Sennosides/Docusate Sodium [Senna Plus 8.6-50 mg Tablet] 2 each PO BID Oxybutynin Chloride [Ditropan XL] 5 mg PO DAILY carvediloL 25 mg PO BID Sertraline HCl [Zoloft] 50 mg PO QAM Leflunomide [Arava] 20 mg PO DAILY Prochlorperazine [Compazine] 10 mg PO Q8H PRN PRN Reason: Nausea Discontinued Celecoxib [CeleBREX] 100 mg PO BID Discharge Medication List Omeprazole [PriLOSEC] 20 mg PO BID 08/24/16 [History] Gabapentin [Neurontin] 600 mg PO TID 01/04/19 [History] Pramipexole [Mirapex] 0.25 mg PO BID 03/10/21 [History] Vit C/E/Zn/Coppr/Lutein/Zeaxan [Preservision Areds 2 Softgel] 1 each PO DAILY 03/10/21 [History] Acetaminophen with Codeine [Tylenol #4 Tablet] 1 tab PO 5XD PRN 12/07/22 [History] Cyclobenzaprine [Flexeril] 10 mg PO TID 12/07/22 [History] Folic Acid 1 mg PO DAILY 12/07/22 [History] [place]-3 Fatty Acids [[place]-3] 3,200 mg PO BID 12/07/22 [History] Artificial Tears-Hypromellose [Artificial Tear Drops] 1 drops BOTH EYES 5XD PRN 02/03/23 [History] Atorvastatin [Lipitor] 40 mg PO DAILY 02/03/23 [History] Leflunomide [Arava] 20 mg PO DAILY 02/03/23 [History] Oxybutynin Chloride [Ditropan XL] 5 mg PO DAILY 02/03/23 [History] Prochlorperazine [Compazine] 10 mg PO Q8H PRN 02/03/23 [History] Sennosides/Docusate Sodium [Senna Plus 8.6-50 mg Tablet] 2 each PO BID 02/03/23 [History] Sertraline HCl [Zoloft] 50 mg PO QAM 02/03/23 [History] carvediloL 25 mg PO BID 02/03/23 [History] predniSONE 5 mg PO Q2D 02/03/23 [History] Ondansetron Odt [Zofran Odt] 4 mg PO Q8HR PRN #9 tab 02/09/23 [Rx] Simethicone 40 mg/0.6 ml Drops [Mylicon Drops] 40 mg PO PCHS PRN #30 ml 02/09/23 [Rx] bisacodyL [Dulcolax] 5 mg PO DAILY PRN #10 tab 02/09/23 [Rx] [facility] [place] [facility] [place] 1 Week Activity/Diet/Wound Care/Special Instructions: No driving while taking Tylenol with codeine No lifting over 10 pounds You may shower. No soaking or tub baths for 2 weeks Very light activity until you are reevaluated at your follow up appointment with your surgeon No straws or carbonated beverages Continue liquid diet until seen by surgeon Discharge Disposition: HOME SELF-CARE
--- NOTE | 2023-02-24 10:40 | P.OP ---
Date of Procedure: 02/08/23 Preoperative Diagnosis: Morbid obesity Dysphagia Postoperative Diagnosis: Morbid obesity, Dysphagia related to her LAP-BAND Procedure(s) Performed: Laparoscopic removal of LAP-BAND system Laparoscopic sleeve gastrectomy Anesthesia: TANIKA Surgeon: Ryder Goldberg Estimated Blood Loss (ml): 5 Pathology: none sent Condition: stable Disposition: PACU Description of Procedure: The patient was placed on the operating room table in the supine position. She received general anesthesia and then was placed in dorsal lithotomy position. Her abdomen was prepped and draped in sterile fashion. The skin incision sites were anesthetized 1% local Xylocaine. And then the skin was incised with an 11 blade in the left epigastric position over top of the previous LAP-BAND port. Using blunt and sharp dissection with cautery the LAP-BAND port was dissected free. The connecting tube tube was then cut. The LAP-BAND port was removed. . Using a blade less trocar under direct visualization the peritoneal cavity was entered. The abdomen was insufflated and then a 5 mm laparoscope was placed into the peritoneal cavity. A 5 mm trocar was placed in the right epigastric, and right lateral position. A 15 mm trocar was placed in the supra-umbilical position and another 5 mm trocar was placed in the left lateral position. A four-quadrant transversus abdominis plane block was performed with 1% local Xylocaine. The left lateral lobe of the liver was retracted. The stomach was visualized. The LAP-BAND device was then dissected free. The anterior gastric wall plication was taken down with sharp dissection. Adhesions Chacho device were then lysed using left cautery. The LAP-BAND was then cut and withdrawn from around the stomach. The LAP-BAND device and removed through the 15 mm trocar site. The greater curvature of the stomach was then dissected using the Harmonic scissors. The dissection occurred approximately 5 cm from the pylorus to the level of the left elisabeth. There was no hiatal hernia seen. At this point a 40- [place] bougie dilator was placed the oropharynx and passed into the esophagus and into the stomach by the MANOMETER TECHNICIAN. The sleeve gastrectomy was performed by using the powered echelon stapler with a seam guard buttress material. Sequential firings of the stapler were performed. The gastric remnant was then brought out through the 15 mm trocar site. The dilator was withdrawn. And a orogastric tube was replaced into the stomach. The stomach was insufflated with 200 mL of methylene blue normal saline. There was no evidence of extravasation. The abdomen was irrigated there is no bleeding seen. The Dayron-Eligio device was used to close the 15 mm trocar with 0 Vicryl. Skin was closed with interrupted 3-0 Monocryl sutures once the trochars withdrawn. Dermabond dressing was applied. Patient was sent to recovery in stable condition.
--- NOTE | 2023-02-26 13:42 | CDI ---
Documentation Clarification Form Date: 02/26/23 From: Annika Alvarado Admit Date: 02/08/2023 09:30:00 AM Patient Name: Kelly Cui Visit Number: [id number] Discharge Date: 02/09/2023 03:50:00 PM ATTENTION: The Clinical Documentation Specialists (CDI) and [facility] Coding Staff appreciate your assistance in clarifying documentation. Please respond to the clarification below the line at the bottom and electronically sign. The CDI & [facility] Coding staff will review the response and follow-up if needed. Please note: Queries are made part of the Legal Health Record. If you have any questions, please contact the author of this message via ITS. Dr. Ryder Goldberg, Dysphagia & GERD is documented 02/08, History & Physical and patient had Lap- Band, 2007; Lap-Band port replacement, 2016. Additional clarification is requested regarding the relationship, if any, that exists between the diagnoses and the prior procedures. Patients Admitting Diagnosis: Morbid Obesity, Dysphagia Post-Operative Diagnosis: Morbid Obesity, Dysphagia related to her Lap- Band Procedure performed: Laparoscopic removal of Lap-Band system Laparoscopic Sleeve Gastrectomy History/Risk Factors: Morbid Obesity, RA, HTN, GERD, Hypercholesterolemia, and Cerebral Cysts Clinical Indicators: She has been dealing with chronic issues of dysphagia and GERD related to her lap band Treatment: Laparoscopic removal of Lap-Band system Laparoscopic Sleeve Gastrectomy What relationship, if any, exists between the diagnoses of Dysphagia or GERD and the prior procedures: [ ] Dysphagia is a complication of surgical procedure [ xxxxx] GERD is a complication of prior surgical procedure [ ] Dysphagia is an expected outcome of the prior surgical procedure [ ] GERD is an expected outcome of the prior surgical procedure [ ] Dysphagia is related to patients co-morbid condition(s) of please specify ____ & not a complication of the procedure [ ] GERD is related to patients co-morbid condition(s) of please specify ____ & not a complication of the procedure [ ] Other please specify ____ [ ] Unable to determine MAR CAMARENA
== END 2023-02-09 15:50 | disposition home or self-care (01) | DRG 621 ==
LOC: 2ORMAIN 09:30 → 4SSUR 13:44
PROVIDERS: ADMIT Surgery; ATTEND Surgery
PROC: 0DP64CZ Removal of Extraluminal Device from Stomach, Percutaneous Endoscopic Approach (ICD-10-PCS; principal; 2023-02-08 10:40)
PROC: 0DB64Z3 Excision of Stomach, Percutaneous Endoscopic Approach, Vertical (ICD-10-PCS; principal; 2023-02-08 10:40)
DX: E66.01 Morbid (severe) obesity due to excess calories (principal); M05.79 Rheumatoid arthritis with rheumatoid factor of multiple sites without organ or systems involvement; Z68.33 Body mass index [BMI] 33.0-33.9, adult; I10 Essential (primary) hypertension; N32.81 Overactive bladder; K21.9 Gastro-esophageal reflux disease without esophagitis; M19.90 Unspecified osteoarthritis, unspecified site; E78.00 Pure hypercholesterolemia, unspecified; G89.29 Other chronic pain; M54.9 Dorsalgia, unspecified; R13.10 Dysphagia, unspecified; F32.A Depression, unspecified; F41.9 Anxiety disorder, unspecified; G62.9 Polyneuropathy, unspecified; H35.30 Unspecified macular degeneration; R25.1 Tremor, unspecified; G93.0 Cerebral cysts; R91.1 Solitary pulmonary nodule; Z79.1 Long term (current) use of non-steroidal anti-inflammatories (NSAID); Z79.52 Long term (current) use of systemic steroids; Z79.899 Other long term (current) drug therapy; Z98.1 Arthrodesis status; Z98.84 Bariatric surgery status; Z96.89 Presence of other specified functional implants; Z86.16 Personal history of COVID-19; Z88.5 Allergy status to narcotic agent; Z88.8 Allergy status to other drugs, medicaments and biological substances
CPT/HCPCS: 80051; 82310; 82565; 83735; 84100; 84520; 85025; 88307; 94640; 94760

== ENCOUNTER → 2023-02-12 | Outpatient (CLI) | payer MEDICARE, OTHER ==
[2023-02-12 10:58] VITALS: BP 127/80; PULSE 84; RESP 12; TEMP 97.6; BMI 32.5
== END ==
LOC: BARWHC3 10:05
PROVIDERS: ATTEND Surgery
DX: E66.01 Morbid (severe) obesity due to excess calories (principal); Z91.048 Other nonmedicinal substance allergy status; Z88.5 Allergy status to narcotic agent; Z88.1 Allergy status to other antibiotic agents; Z68.32 Body mass index [BMI] 32.0-32.9, adult
CPT/HCPCS: 99211

== ENCOUNTER → 2023-02-15 | Outpatient (CLI) | payer MEDICARE, OTHER ==
[2023-02-15 14:13] VITALS: BP 140/82; PULSE 98; TEMP 98.1; BMI 32.3
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
== END ==
LOC: BARWHC3 13:58
PROVIDERS: ATTEND Surgery
DX: E66.01 Morbid (severe) obesity due to excess calories (principal); E78.5 Hyperlipidemia, unspecified; I10 Essential (primary) hypertension; M06.9 Rheumatoid arthritis, unspecified; Z98.84 Bariatric surgery status; Z91.048 Other nonmedicinal substance allergy status; Z88.5 Allergy status to narcotic agent; Z88.1 Allergy status to other antibiotic agents
CPT/HCPCS: 97803; G0463; 99211

== ENCOUNTER → 2023-03-01 | Outpatient (CLI) | payer MEDICARE, OTHER ==
[2023-03-01 13:49] VITALS: BP 135/67; PULSE 75; TEMP 98.1; BMI 30.4
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
== END ==
LOC: BARWHC3 13:24
PROVIDERS: ATTEND Surgery
DX: E66.01 Morbid (severe) obesity due to excess calories (principal); Z68.30 Body mass index [BMI] 30.0-30.9, adult; K21.9 Gastro-esophageal reflux disease without esophagitis; E78.5 Hyperlipidemia, unspecified; I10 Essential (primary) hypertension; M06.9 Rheumatoid arthritis, unspecified; Z98.84 Bariatric surgery status; Z91.048 Other nonmedicinal substance allergy status; Z88.5 Allergy status to narcotic agent; Z88.1 Allergy status to other antibiotic agents
CPT/HCPCS: 99211

== ENCOUNTER 2023-03-03 18:21 | Emergency (ER) | payer MEDICARE, OTHER ==
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
[2023-03-03] MEDS ORDERED: SODIUM CHLORIDE 0.9% 500 ML 500 ML IV STA (21:00)
[2023-03-03] MEDS ORDERED: SODIUM CHLORIDE 0.9% 1,000 ML IV STA (21:00)
[2023-03-03] MEDS ORDERED: ONDANSETRON 4 MG/2 ML VIAL IVP STA (21:00)
[2023-03-03] MEDS ORDERED: fentaNYL (PF) 50 MCG/ML 2 ML AMP IVP STA (21:03)
[2023-03-03] MEDS ORDERED: PANTOPRAZOLE 40 MG/10 ML VIAL IVP STA (21:03)
[2023-03-03 21:33] LABS: ALT 14 U/L (4-34); AST 20 U/L (14-36); African American GFR (CKD) >90 (>60 ml/min/1.73 sqM); Albumin 3.4 g/dL (3.5-5.0); Alkaline Phosphatase 138 U/L (38-126); Amylase 82 U/L (30-110); Anion Gap 10 mmol/L; Blood Urea Nitrogen 13 mg/dL (7-17); Carbon Dioxide 27 mmol/L (22-30); Chloride 100 mmol/L (98-107); Glucose 104 mg/dL (74-99); Lipase 73 U/L (23-300); Non-African American GFR(CKD) >90 (>60 ml/min/1.73 sqM); Potassium 4.4 mmol/L (3.5-5.1); Sodium 137 mmol/L (137-145); Total Bilirubin 0.6 mg/dL (0.2-1.3); Total Protein 7.2 g/dL (6.3-8.2)
[2023-03-03 21:34] LABS: Basophils % (A) 0 %; Eosinophils # (A) 0.3 k/uL (0-0.7); Eosinophils % (A) 2 %; HCT 33.8 % (34.0-46.0); HGB 10.4 gm/dL (11.4-16.0); Hypochromasia Slight; Lymphocytes # (A) 1.7 k/uL (1.0-4.8); Lymphocytes % (A) 15 %; MCH 25.7 pg (25.0-35.0); MCHC 30.8 g/dL (31.0-37.0); MCV 83.4 fL (80.0-100.0); Mean Platelet Volume 6.9; Monocytes # (A) 1.1 k/uL (0-1.0); Monocytes % (A) 10 %; Neutrophils # (A) 8.3 k/uL (1.3-7.7); Neutrophils % (A) 72 %; Platelet Count 515 k/uL (150-450); RBC 4.05 m/uL (3.80-5.40); RDW 15.4 % (11.5-15.5); WBC 11.6 k/uL (3.8-10.6)
[2023-03-03] MEDS ORDERED: PIPERACILLIN-TAZOBACTAM 3.375 GM in SODIUM CHLORIDE 0.9% 100 ML IVPB STA (21:42)
[2023-03-03 21:43] LABS: INR 1.1 (<1.2); Partial Thromboplastin Time 27.4 sec (22.0-30.0); Prothrombin Time 11.4 sec (9.0-12.0)
[2023-03-04 00:40] VITALS: BP 132/78; PULSE 72; RESP 16; TEMP 98
== END 2023-03-04 00:43 | disposition other institution (70) ==
LOC: SUPCPDRO 18:21 → EC 18:21
DX: R10.12 Left upper quadrant pain (principal); L02.211 Cutaneous abscess of abdominal wall; K68.11 Postprocedural retroperitoneal abscess; I10 Essential (primary) hypertension; K21.9 Gastro-esophageal reflux disease without esophagitis; E78.5 Hyperlipidemia, unspecified; M19.90 Unspecified osteoarthritis, unspecified site; F41.9 Anxiety disorder, unspecified; F32.A Depression, unspecified; Z79.899 Other long term (current) drug therapy; Z88.5 Allergy status to narcotic agent; Z88.8 Allergy status to other drugs, medicaments and biological substances
CPT/HCPCS: 36415; 80053; 82150; 83605; 83690; 85025; 85610; 85730; 87040; 99284; 96365; 96366 ×2; 96375 ×2; 96361 ×2; J2543; J2405; C9113